=== PATIENT | female | born 1955 | race Caucasian/White ===

== ENCOUNTER → 2018-05-14 12:03 | Outpatient (CLI) | payer OTHER, SELFPAY ==
--- NOTE | 2018-05-14 12:17 | XR_ITS ---
XR chest 2V HISTORY: ITS.REASON: HTN ORDERING PHYSICIAN: Jacki Conde DPM PATIENT AGE: 62 years COMPARISON: None available FINDINGS: The cardiomediastinal silhouette and pulmonary vascularity are within normal limits. The lungs are clear without infiltrates, suspicious nodules, or pleural effusions. There are small calcified left hilar nodes and calcified granuloma left lower lobe. No acute bony abnormalities. IMPRESSION: Negative chest, no acute finding
[2018-05-14 12:20] LABS: Basophils % 0.7 % (0.1-2.0); Eosinophils # 0.1 K/mm3 (0.0-0.4); Hematocrit 45.3 % (37.0-47.0); Lymphocytes # 2.5 K/mm3 (0.7-4.5); Lymphocytes % 42.8 K/mm3 (10-50); Mean Corpuscular HGB Conc 33.2 g/dL (31.8-35.4); Mean Corpuscular Hemoglobin 30.2 pg (27.0-31.2); Mean Corpuscular Volume 90.8 fl (81-99); Monocytes # 0.3 K/mm3 (0.1-1.0); Monocytes % 4.8 % (1.7-9.3); Neutrophils % 50.7 % (37.0-80.0); Platelet Count 307 K/mm3 (142-424); Red Blood Count 4.99 M/mm3 (4.20-5.40); Red Cell Distribution Width 13.5 % (11.5-17.5); White Blood Count 5.9 K/mm3 (4.8-10.8)
[2018-05-14 12:30] LABS: INR 1.02 (0.9-1.1); Prothrombin Time 10.5 seconds (9.4-11.8)
[2018-05-14 15:07] LABS: Alanine Aminotransferase 20 U/L (12-78); Albumin Level 4.1 gm/dL (3.4-5.0); Albumin/Globulin Ratio 1.4 (1.1-1.8); Alkaline Phosphatase 89 U/L (46-116); Anion Gap 14.2 mEq/L (5-15); Aspartate Amino Transferase 12 U/L (15-37); Bilirubin,Total 0.5 mg/dL (0.2-1.0); Blood Urea Nitrogen 12 mg/dL (7-18); Calcium 9.6 mg/dL (8.5-10.1); Carbon Dioxide 28 mmol/L (21.0-32.0); Chloride 105 mmol/L (98-107); Creatinine,Serum 0.75 mg/dL (0.55-1.02); Estimated Glomerular Filt Rate 78 ml/min (>60); GFR (African American) 94 ML/MIN (>60); Glucose 100 mg/dL (74-106); Potassium 4.2 mmoL/L (3.5-5.1); Sodium 143 mmol/L (136-145); Total Protein,Serum 7.1 gm/dL (6.4-8.2)
== END ==
PROVIDERS: Visit Provider Podiatrist
DX: Z01.818 Encounter for other preprocedural examination (principal); S92.351A Displaced fracture of fifth metatarsal bone, right foot, initial encounter for closed fracture
CPT/HCPCS: 36415; 71046; 80053; 85025; 85610; 93005

== ENCOUNTER → 2018-05-29 12:55 | Outpatient (CLI) | payer OTHER, SELFPAY ==
--- NOTE | 2018-05-29 13:50 | XR_ITS ---
XR foot wt bearing RT 3V HISTORY: Follow-up surgery ITS.REASON: postop views ORDERING PHYSICIAN: Jacki Conde DPM PATIENT AGE: 62 years COMPARISON: 05/15/2018 FINDINGS: Status post ORIF fifth metatarsal fracture with a lateral bone plate with 5 screws. The proximal screw projects beyond the medial aspect of the cortex by nearly 3 mm. An additional screw is present not within the bone plate in the mid shaft. There is good alignment with no significant displacement. Fracture line is still visible. IMPRESSION: Good alignment status post ORIF fifth metatarsal fracture
== END ==
PROVIDERS: Visit Provider Podiatrist
DX: Z98.890 Other specified postprocedural states (principal)
CPT/HCPCS: 73630

== ENCOUNTER → 2018-06-12 08:07 | Outpatient (CLI) | payer OTHER, SELFPAY ==
--- NOTE | 2018-06-12 08:11 | XR_ITS ---
XR foot wt bearing RT 3V HISTORY: Follow-up surgery/fracture ITS.REASON: post-op ORDERING PHYSICIAN: Jacki Conde DPM PATIENT AGE: 62 years COMPARISON: None 05/29/2018 FINDINGS: No change bone plate overlying the fifth metatarsal stabilizing the mid to distal shaft fracture which is in good alignment. IMPRESSION: No change status post ORIF fifth metatarsal fracture
== END ==
PROVIDERS: PCP Family Medicine; Visit Provider Podiatrist
DX: S92.351D Displaced fracture of fifth metatarsal bone, right foot, subsequent encounter for fracture with routine healing (principal); Z98.890 Other specified postprocedural states
CPT/HCPCS: 73630

== ENCOUNTER → 2018-06-26 08:17 | Outpatient (CLI) | payer OTHER, SELFPAY ==
--- NOTE | 2018-06-26 08:19 | XR_ITS ---
XR foot wt bearing RT 3V HISTORY: Follow-up surgery ITS.REASON: Post-op Views ORDERING PHYSICIAN: Jacki Conde DPM PATIENT AGE: 62 years COMPARISON: 06/12/2018 FINDINGS: Bone plate remains reservoir on the mid and distal shaft of the fifth metatarsal stabilizing comminuted midshaft fracture with good alignment of fracture fragments. Fracture line is still visible. IMPRESSION: No change in alignment status post ORIF fifth metatarsal fracture
== END ==
PROVIDERS: PCP Family Medicine; Visit Provider Podiatrist
DX: S92.351D Displaced fracture of fifth metatarsal bone, right foot, subsequent encounter for fracture with routine healing (principal); Z98.890 Other specified postprocedural states
CPT/HCPCS: 73630

== ENCOUNTER → 2018-07-11 09:11 | Outpatient (CLI) | payer OTHER, SELFPAY ==
--- NOTE | 2018-07-11 09:13 | XR_ITS ---
XR foot wt bearing RT 3V Ordering Physician: Jacki Conde DPM Patient Age: 62 years: Female HISTORY: ITS.REASON: Post-op views Surgery 8 weeks ago pain swelling right foot TECHNIQUE: Right foot 3 view weightbearing lateral oblique. COMPARISON :[id number] right foot. Also 05/14/2018 original right foot and a 06/12/2018 right foot FINDINGS Bone plate remains and applied along the lateral aspect towards more dorsal aspect, of the fifth metatarsal.. This stabilizes a oblique mild comminuted fracture midportion fifth metatarsal.A single screw also transverses the oblique portion of fracture There is stable good position of the fracture and fixation elements. Diffuse disuse osteopenia throughout the foot. There is some subtle lucency about the screws. This appears similar to previous studies . There is some early periosteal reaction seen at the medial aspect of the fifth metatarsal. Soft tissue swelling throughout the foot appears slightly more evident today than June 26. I see no erosive nor destructive changes . Toes appear intact. Mild degenerative changes first MTP joint. 9-10 mm Plantar calcaneal spur again noted. Along with minimal spurring at insertion of Achilles tendon. IMPRESSION: ORIF fifth metatarsal fracture. Stable appearance of fracture and fixation elements. Diffuse demineralization. . Soft tissue swelling at the forefoot-appears similar if not slightly more pronounced than June 26 study
== END ==
PROVIDERS: PCP Family Medicine; Visit Provider Podiatrist
DX: S92.351D Displaced fracture of fifth metatarsal bone, right foot, subsequent encounter for fracture with routine healing (principal); Z98.890 Other specified postprocedural states
CPT/HCPCS: 73630

== ENCOUNTER → 2018-07-31 10:29 | Outpatient (CLI) | payer OTHER, SELFPAY ==
--- NOTE | 2018-07-31 10:30 | XR_ITS ---
XR foot wt bearing RT 3V HISTORY: Follow-up surgery/fracture ITS.REASON: postop views ORDERING PHYSICIAN: Jacki Conde DPM PATIENT AGE: 62 years COMPARISON: 07/11/2018 FINDINGS: Bone plate remains in place overlying the fifth metatarsal with good alignment. There remains generalized osteopenia. Fracture line is still present visible. Cortical lucencies are noted involving the metatarsals probably related to diffuse demineralization. IMPRESSION: Overall no change status post ORIF fifth metatarsal fracture with good alignment and diffuse osteopenia
== END ==
PROVIDERS: PCP Family Medicine; Visit Provider Podiatrist
DX: Z98.890 Other specified postprocedural states (principal)
CPT/HCPCS: 73630

== ENCOUNTER 2018-08-22 14:00 | Outpatient (RCR) | payer OTHER, SELFPAY ==
--- NOTE | 2018-07-24 09:50 | HMH.PTOPEV ---
PT Outpatient Evaluation Rehab PT Outpatient Evaluation Start: 07/24/18 09:37 Freq: Status: Active Protocol: Document 07/24/18 09:37 ROSALINDA (Rec: 07/24/18 09:50 CHRISMARIYA [id number]) Electronically Signed By Phani Garrison, PT 07/24/18 09:37 Outpatient Therapy Subjective History Subjective History Patient is a 62 year old female presenting to outpatient PT with reports of R foot/ankle pain S/P ORIF 5th metatarsal fracture as a result of a fall off of a ladder at home. Initial injury occurred 05/11/18. Surgery performed 05/16/18 per patient report. Pt added that approximately 2 weeks after surgery, diagnostics indicated a hairline fracture of the R 5th metatarsal. Pt reports MD instructed to only walk on R heel at this time. No other comorbidities to report. Chief Complaint Pain Stiff Swelling Symptom Type Sharp Symptoms Relieved By Rest/Positioning Ice Prescription Meds Symptoms Aggravated By Standing Physical Activity Walking Prior Functional Limitations None Current Functional Limitations Housework Standing Squatting Recreation Activity Walking Stairs Balance Symptom Description Intermittent Level of pain today (0-10) 0 Pain scale - at its best (0-10) 0 Pain scale - at its worst (0-10) 2 Ankle/Foot Eval Gait Observation General Gait Pattern Observation Antalgic Gait Decrease Weight Bear (R) Assistive Device Ambulation Assistive Device Axillary Crutches Palpation Tenderness right Ankle/Foot Palpation Findings Tenderness Ankle/Foot Palpation Overall Comment surgical incision, 1-5 metatarsal heads ROM left Ankle/Foot ROM Reason Not Measured Within Functional Limits Great Toe ROM Reason Not Measured Within Functional Limits right Ankle/Foot Dorsiflexion w/Knee Extended -2 Active Range Motion (degrees) Ankle/Foot Dorsiflexion w/Knee Extended 2 Passive Range (degrees)
== END 2018-08-22 14:05 | disposition home or self-care (01) ==
LOC: PT 14:00
PROVIDERS: Visit Provider Podiatrist
DX: Z98.890 Other specified postprocedural states (principal); S92.351D Displaced fracture of fifth metatarsal bone, right foot, subsequent encounter for fracture with routine healing
CPT/HCPCS: 97014; 97016; 97110; 97112; 97140; 97163; 97760; G0283

== ENCOUNTER → 2018-09-10 10:29 | Outpatient (CLI) | payer OTHER, SELFPAY ==
--- NOTE | 2018-09-10 10:30 | XR_ITS ---
XR foot wt bearing RT 3V HISTORY: Follow-up ORIF ITS.REASON: fracture follow-up ORDERING PHYSICIAN: Jacki Conde DPM PATIENT AGE: 62 years COMPARISON: 07/31/2018 FINDINGS: Good alignment status post ORIF fifth metatarsal fracture with bone plate in place. The diffuse osteopenia has shown some improvement. The fracture line at the fifth metatarsal is somewhat less apparent. IMPRESSION: Good alignment status post ORIF fifth metatarsal fracture
== END ==
PROVIDERS: PCP Family Medicine; Visit Provider Podiatrist
DX: S92.351D Displaced fracture of fifth metatarsal bone, right foot, subsequent encounter for fracture with routine healing (principal); Z98.890 Other specified postprocedural states
CPT/HCPCS: 73630

== ENCOUNTER → 2019-03-04 13:46 | Outpatient (CLI) | payer MEDICARE, BC, SELFPAY ==
--- NOTE | 2019-03-04 13:55 | US_ITS ---
US extremity RT limited CLINICAL INDICATION: ITS.REASON: KNOT RT LOWER LEG ORDERING PHYSICIAN: Femi Medeiros MD PATIENT AGE: 63 years Comparison: None FINDINGS: Ultrasound is performed of the area of interest in the region of reported swelling in the right lower leg medially. No sonographic abnormalities are detected. IMPRESSION: Unremarkable targeted ultrasound of the right lower extremity. MRI may be of further value if there is indeed a palpable abnormality.
== END ==
PROVIDERS: PCP Family Medicine; Visit Provider Family Medicine
DX: M79.89 Other specified soft tissue disorders (principal)
CPT/HCPCS: 76882

== ENCOUNTER → 2019-04-23 13:37 | Outpatient (CLI) | payer MEDICARE, BC, SELFPAY ==
--- NOTE | 2019-04-23 13:43 | XR_ITS ---
XR foot wt bearing RT 3V HISTORY: Follow-up ORIF/fracture ITS.REASON: Post-op ORDERING PHYSICIAN: Jacki Conde DPM PATIENT AGE: 63 years COMPARISON: 09/10/2018 FINDINGS: Lateral bone plate is once again noted involving the mid and distal aspect of the fifth metatarsal with good alignment. No evidence of orthopedic complication. There are mild osteoarthritic changes of the first metatarsal phalangeal joint with hypertrophic change of the distal aspect of the first metatarsal. IMPRESSION: No change status post ORIF fifth metatarsal with good alignment
== END ==
PROVIDERS: PCP Family Medicine; Visit Provider Podiatrist
DX: Z98.890 Other specified postprocedural states (principal)
CPT/HCPCS: 73630

== ENCOUNTER → 2019-06-29 10:10 | Outpatient (CLI) | payer MEDICARE, BC, SELFPAY ==
[2019-06-29 14:18] LABS: Blood Urea Nitrogen 16 mg/dL (7-18); Creatinine,Serum 0.65 mg/dL (0.55-1.02); Estimated Glomerular Filt Rate 91 ml/min (>60); GFR (African American) 111 ML/MIN (>60)
== END ==
PROVIDERS: Visit Provider Podiatrist
DX: Z01.818 Encounter for other preprocedural examination (principal); R22.41 Localized swelling, mass and lump, right lower limb
CPT/HCPCS: 36415; 82565; 84520

== ENCOUNTER → 2019-07-01 09:18 | Outpatient (CLI) | payer MEDICARE, BC, SELFPAY ==
--- NOTE | 2019-07-01 09:20 | MR_ITS ---
PROCEDURE: MR LOWER LEG RT WO/W CON CLINICAL INDICATION: pain, lump or mass Mass on the front and right side of her leg Localized swelling mass and lump right lower limb medially COMPARISON: EXTRL US extremity RT limited from 03/04/2019 TECHNIQUE: Routine multiplanar multi echo sequences are performed without and with gadolinium enhancement. FINDINGS: There are no markers placed at the area of concern. No masses. No bony abnormalities. No abnormal fluid collections. There is mild prominence of the subcutaneous adipose tissue along the anterior medial aspect of the leg which could possibly account for the area of palpable concern. Lipoma is considered although an encapsulated lipoma is not demonstrated. No abnormal enhancement. There is a small mild amount of pretibial edema noted in the mid to lower leg IMPRESSION: No suspicious mass or fluid collection evident. There is asymmetrical prominence of the subcutaneous fat along the anterior medial aspect of the leg which may indicate lipomatosis involvement. Dictated by: Goldy Pickens MD 07/03/2019 09:18 Electronically signed by Goldy Pickens MD in [place] 07/05/2019 10:40
== END ==
PROVIDERS: PCP Family Medicine; Visit Provider Podiatrist
DX: R22.41 Localized swelling, mass and lump, right lower limb (principal)
CPT/HCPCS: 73720; A9576

== ENCOUNTER → 2019-08-07 12:19 | Outpatient (CLI) | payer MEDICARE, BC, SELFPAY ==
--- NOTE | 2019-08-07 12:24 | XR_ITS ---
PROCEDURE: XR KNEE RT 4V CLINICAL INDICATION: right knee pain COMPARISON: No exams were available for comparison FINDINGS: There are mild osteoarthritic changes of the medial compartment and patellofemoral joint. There are small osteophytes at the tibial spine. There is mild lateral subluxation of the tibia by 5 mm. Small suprapatellar effusion suspected. Other findings:None. IMPRESSION: Mild osteoarthritis of the right knee Dictated by: Goldy Pickens MD 08/07/2019 15:18 Electronically signed by Goldy Pickens MD in [place] 08/07/2019 15:18
== END ==
PROVIDERS: PCP Family Medicine; Visit Provider Orthopaedic Surgery
DX: M25.561 Pain in right knee (principal)
CPT/HCPCS: 73564

== ENCOUNTER → 2020-06-18 12:08 | Outpatient (CLI) | payer MEDICARE, BC, SELFPAY ==
[2020-06-18 13:10] LABS: Basophils % 0.5 % (0.1-2.0); Eosinophils # 0.1 K/mm3 (0.0-0.4); Hematocrit 45.6 % (37.0-47.0); Hemoglobin 15.2 g/dL (12.2-16.2); Mean Corpuscular HGB Conc 33.3 g/dL (31.8-35.4); Mean Corpuscular Hemoglobin 30.5 pg (27.0-31.2); Mean Corpuscular Volume 91.5 fl (81-99); Mean Platelet Volume 6.9 fl (7.4-10.4); Monocytes # 0.4 K/mm3 (0.1-1.0); Monocytes % 4.5 % (1.7-9.3); Neutrophils # 5.5 K/mm3 (1.8-7.8); Platelet Count 329 K/mm3 (142-424); Red Blood Count 4.99 M/mm3 (4.20-5.40); Red Cell Distribution Width 12.5 % (11.5-17.5); White Blood Count 7.9 K/mm3 (4.8-10.8)
[2020-06-18 14:27] LABS: Alanine Aminotransferase 8 U/L (12-78); Albumin Level 4.4 g/dl (3.5-5.0); Alkaline Phosphatase 110 U/L (38-126); Anion Gap 11.5 mEq/L (5-15); Aspartate Amino Transferase 20 U/L (14-36); Bilirubin,Direct 0.1 mg/dl (0.0-0.4); Bilirubin,Indirect 0.5 mg/dL (0.0-0.9); Bilirubin,Total 0.6 mg/dl (0.2-1.3); Bilirubin,Unconjugated 0.5 mg/dL (0.0-1.1); Blood Urea Nitrogen 14 mg/dl (7-17); Calcium 9.9 mg/dl (8.4-10.2); Carbon Dioxide 32 mmol/L (22.0-30.0); Chloride 104 mmol/L (98-107); Estimated Glomerular Filt Rate 72 ml/min (>60); GFR (African American) 87 ML/MIN (>60); Glucose 94 mg/dl (74-100); Potassium 4.5 mmoL/L (3.5-5.1); Sodium 143 mmol/L (136-145); Total Protein,Serum 7.6 g/dl (6.3-8.2)
[2020-06-18 14:35] LABS: Troponin I < 0.01 ng/ml (0.00-0.034)
== END ==
PROVIDERS: Visit Provider Family Medicine
DX: R07.9 Chest pain, unspecified (principal); I10 Essential (primary) hypertension; R10.13 Epigastric pain; Z82.49 Family history of ischemic heart disease and other diseases of the circulatory system
CPT/HCPCS: 36415; 80048; 80076; 84484; 85025

== ENCOUNTER → 2020-09-15 16:18 | Outpatient (CLI) | payer MEDICARE, BC, SELFPAY ==
--- NOTE | 2020-09-19 11:20 | PC.NURSE ---
pt notified of negative covid swab
== END ==
PROVIDERS: PCP Family Medicine; Visit Provider Nurse Practitioner Family
DX: Z03.818 Encounter for observation for suspected exposure to other biological agents ruled out (principal)
CPT/HCPCS: U0003; U0004

== ENCOUNTER 2020-09-17 09:01 | Emergency (ER) | payer MEDICARE, BC, SELFPAY ==
[2020-09-17 09:17] VITALS: BP 139/70; PULSE 72; RESP 15; TEMP 36.8; O2SAT 98; BMI 28.6
--- NOTE | 2020-09-17 09:28 | HMH.EDGENADL ---
ED Disposition Clinical Impression: COVID-19 virus infection Disposition: Home, Self-Care Condition on Discharge: Good Instructions: DI for COVID-19 (Suspected or Confirmed ), COVID-19 Antibody Test, COVID-19 Viral Test, COVID-19: Testing and Tracing Additional Instructions: Continue [id number] symptomatic medications for cough and fever and sore throat. Your nasal swab is still pending. Your IgM Covid antibody was positive which indicates that you do have active Covid infection. You will be contacted regarding antibody infusion therapy. He should return to the emergency department if you are experiencing shortness of breath or severe weakness, persistent vomiting and unable to tolerate oral liquids. Referrals: Femi Medeiros MD [Primary Care Provider] - - Critical Care Critical Care Time: No Attestation: On 09/17/20, the high probability of a clinically significant, sudden or life threatening deterioration of the following system(s) required my full and direct attention, intervention and personal management. The time I documented below is in addition to time spent performing reported procedures but includes the following listed in this critical care notation. Medical Decision Making - Ritesh Inquiry Pt receiving controlled substance: No Vital Signs: 09/17/20 09:17 09/17/20 10:03 09/17/20 10:30 Temperature 98.2 F Temperature Source Oral Pulse Rate [Right Brachial] 72 70 79 Respiratory Rate 15 Blood Pressure [Right Arm] 139/70 130/68 142/75 H Blood Pressure Mean [Right Arm] 93 88 97 Blood Pressure Source [Right Arm] Automatic Cuff Blood Pressure Position [Right Arm] Sitting 02 Sat by Pulse Oximetry 98 96 96 Oxygen Delivery Method Room Air Room Air Room Air - Lab Data Lab Results 09/17/20 09:45: WBC 6.2, RBC 5.43 H, Hgb 17.2 H, Hct 50.2 H, MCV 92.5, MCH 31.7 H, MCHC 34.2, RDW 13.8, Plt Count 314, MPV 7.7, Neut % (Auto) 58.4, Lymph % (Auto) 33.6, Candler % (Auto) 6.2, Eos % (Auto) 1.0, Baso % (Auto) 0.9, Neut # (Auto) 3.6, Lymph # (Auto) 2.1, Candler # (Auto) 0.4, Eos # (Auto) 0.1, Baso # (Auto) 0.1 09/17/20 09:45: Sodium 142, Potassium 4.5, Chloride 104, Carbon Dioxide 31 H, Anion Gap 11.5, BUN 15, Creatinine 0.90, Estimated Creat Clear 68, Estimated GFR 63, Est GFR ( Amer) 76, Glucose 107 H, Calcium 10.1, Total Bilirubin 0.6, AST 25, ALT 12, Alkaline Phosphatase 75, Total Protein 8.3 H, Albumin 4.7, Globulin 3.6 H, Albumin/Globulin Ratio 1.3 09/17/20 09:45: Influenza Type A Ag Negative, Influenza Type B Ag Negative, SARS-CoV-2 IgG Ab (Rapid) Negative, SARS-CoV-2 IgM Ab (Rapid) Positive A Result diagrams: 09/17/20 09:45 09/17/20 09:45 - Radiology Data #1 Image(s): Chest Image Reviewed: Yes I reviewed the patient's radiology image, Yes I have reviewed radiologist's interpretation PROCEDURE: XR CHEST PORTABLE CLINICAL HISTORY: cough COMPARISON: CR CXR2V XR chest 2V from 05/14/2018 CR XR RIBS RT MIN 3V W CXR1V from 05/15/2019 FINDINGS: The cardiomediastinal silhouette and pulmonary vascularity are within normal limits. The lungs are clear without infiltrates, suspicious nodules, or pleural effusions. No acute bony abnormalities. IMPRESSION: No acute findings. Dictated by: Goldy Pickens MD 09/17/2020 10:14 Goldy Pickens MD in 09/17/2020 10:14 Medical Decision Narrative: I contacted the laboratory. The patient's swab was not obtained until after 4 PM on Monday and therefore was not sent out to the reference lab until yesterday because there is only 1 pickup per day. She expects the results to be back before 2 PM today. Patient and notified. General Adult HPI - General Chief complaint: Upper Respiratory Infection Stated complaint: Achy, sore throat headache Time Seen by Provider: 09/17/20 09:28 Mode of Arrival: Ambulatory Limitations: No Limitations Description of Symptoms (Recalled from ER Triage Doc. by RN): Pt reports h
--- NOTE | 2020-09-17 09:55 | XR_ITS ---
PROCEDURE: XR CHEST PORTABLE CLINICAL HISTORY: cough COMPARISON: CR CXR2V XR chest 2V from 05/14/2018 CR XR RIBS RT MIN 3V W CXR1V from 05/15/2019 FINDINGS: The cardiomediastinal silhouette and pulmonary vascularity are within normal limits. The lungs are clear without infiltrates, suspicious nodules, or pleural effusions. No acute bony abnormalities. IMPRESSION: No acute findings. Dictated by: Goldy Pickens MD 09/17/2020 10:14 Goldy Pickens MD in [place] 09/17/2020 10:14
[2020-09-17 10:03] VITALS: BP 130/68; PULSE 70; O2SAT 96
[2020-09-17 10:12] LABS: Basophils # 0.1 K/mm3 (0-0.2); Basophils % 0.9 % (0.1-2.0); Eosinophils # 0.1 K/mm3 (0.0-0.4); Hematocrit 50.2 % (37.0-47.0); Hemoglobin 17.2 g/dL (12.2-16.2); Lymphocytes # 2.1 K/mm3 (0.7-4.5); Lymphocytes % 33.6 % (10-50); Mean Corpuscular HGB Conc 34.2 g/dL (31.8-35.4); Mean Corpuscular Hemoglobin 31.7 pg (27.0-31.2); Mean Corpuscular Volume 92.5 fl (81-99); Mean Platelet Volume 7.7 fl (7.4-10.4); Monocytes # 0.4 K/mm3 (0.1-1.0); Monocytes % 6.2 % (1.7-9.3); Neutrophils # 3.6 K/mm3 (1.8-7.8); Neutrophils % 58.4 % (37.0-80.0); Platelet Count 314 K/mm3 (142-424); Red Blood Count 5.43 M/mm3 (4.20-5.40); Red Cell Distribution Width 13.8 % (11.5-17.5); White Blood Count 6.2 K/mm3 (4.8-10.8)
[2020-09-17 10:13] LABS: Chloride 104 mmol/L (98-107); Potassium 4.5 mmoL/L (3.5-5.1); Sodium 142 mmol/L (136-145)
[2020-09-17 10:15] LABS: Alanine Aminotransferase 12 U/L (12-78); Aspartate Amino Transferase 25 U/L (14-36); Blood Urea Nitrogen 15 mg/dl (7-17); Creatinine Clearance Estimated 68 mL/min (50-200); Estimated Glomerular Filt Rate 63 ml/min (>60); GFR (African American) 76 ML/MIN (>60)
[2020-09-17 10:16] LABS: Albumin Level 4.7 g/dl (3.5-5.0); Albumin/Globulin Ratio 1.3 (1.1-1.8); Alkaline Phosphatase 75 U/L (38-126); Anion Gap 11.5 mEq/L (5-15); Bilirubin,Total 0.6 mg/dl (0.2-1.3); Calcium 10.1 mg/dl (8.4-10.2); Carbon Dioxide 31 mmol/L (22.0-30.0); Globulin 3.6 g/dL (1.3-3.2); Glucose 107 mg/dl (74-100); Total Protein,Serum 8.3 g/dl (6.3-8.2)
[2020-09-17 10:30] VITALS: BP 142/75; PULSE 79; O2SAT 96
[2020-09-17 10:40] LABS: Coronavirus 19 IgG Antibody Negative (Negative)
--- NOTE | 2020-09-17 10:40 | PC.NURSE ---
igm results called to Tosin Villasenor, Licensed [employer] at this time
--- NOTE | 2020-09-17 10:40 | PC.NURSE ---
Dr Raudel mark.
[2020-09-17 10:41] LABS: Coronavirus 19 IgM Antibody Positive (Negative)
--- NOTE | 2020-09-17 10:42 | PC.NURSE ---
Dr Starks returned call
[2020-09-17 12:01] VITALS: BP 132/89; PULSE 62; RESP 17; TEMP 37.2; O2SAT 96
--- NOTE | 2020-09-19 11:21 | PC.NURSE ---
per ER (Kaylyn) called pt back at this time, left a voicemail for pt. MD Patiño wants me to speak to pt about getting reswabbed for covid 19, states he will write an outpt order for pt to have another swab. waiting decontamination technician back from pt.
--- NOTE | 2020-09-19 12:16 | PC.NURSE ---
Spoke with pt r/t MD Patiño recommended pt have another covid-19 swab. Pt states she come back for another swab. MD Patiño states he will write an outpt order for pt.
--- NOTE | 2020-09-19 16:33 | PC.NURSE ---
notified pt that covid swab performed today is positive.
== END 2020-09-17 12:02 | disposition home or self-care (01) ==
PROVIDERS: Emergency Provider Emergency Medicine; PCP Family Medicine
DX: U07.1 COVID-19 (principal); I10 Essential (primary) hypertension; Z79.899 Other long term (current) drug therapy; Z88.0 Allergy status to penicillin; Z88.5 Allergy status to narcotic agent
CPT/HCPCS: 71045; 80053; 85025; 86328; 87275; 87276; 99283

== ENCOUNTER → 2020-09-19 12:45 | Outpatient (CLI) | payer MEDICARE, BC, SELFPAY | PROVIDERS: PCP Family Medicine; Visit Provider Emergency Medicine | DX: Z20.828 Contact with and (suspected) exposure to other viral communicable diseases (principal); U07.1 COVID-19; R51.9 Headache, unspecified; R11.10 Vomiting, unspecified | CPT/HCPCS: U0003 ==

== ENCOUNTER 2020-09-22 07:57 | Outpatient (CLI) | payer MEDICARE, BC, SELFPAY ==
[2020-09-22] VITALS (10 sets, daily range): BP systolic 94–142; BP diastolic 43–94; PULSE 62–89; RESP 16–21; TEMP 36.6–36.8; O2SAT 94–98; BMI 28.6
--- NOTE | 2020-09-22 09:46 | PC.NURSE ---
Infusion complete. Patient shows no signs or symptoms of distress or reactions.
[2020-09-22 11:51] LABS: Strep Scrn Group A (Rapid) Negative (Negative)
== END 2020-09-22 10:46 | disposition home or self-care (01) ==
PROVIDERS: PCP Family Medicine; Visit Provider Family Medicine
DX: U07.1 COVID-19 (principal)
CPT/HCPCS: 87430; 96365

== ENCOUNTER → 2021-06-16 14:04 | Outpatient (CLI) | payer MEDICARE, BC, SELFPAY ==
--- NOTE | 2021-06-16 14:05 | CT_ITS ---
PROCEDURE: CT SINUS WO CON CLINICAL HISTORY: sinus problems Sinus congestion COMPARISON: No exams were available for comparison TECHNIQUE: Axial images obtained with sagittal and coronal reformats. All CT scans at the facility use one or more dose reduction, viz: automated exposure control, ma/kV adjustment per patient size (including targeted exams where dose is matched to indication, i.e. head), or iterative reconstruction technique. FINDINGS: The frontal, ethmoid, maxillary, and sphenoid sinuses have an unremarkable appearance. No mucosal thickening or sinus air-fluid level evident. No mastoid effusion. There is mild rightward nasal septal deviation inferiorly with a septal spur projecting toward the right causing canal narrowing. The ostiomeatal units are patent. Orbits have an unremarkable appearance as do TMJs. IMPRESSION: Mild rightward nasal septal deviation otherwise negative CT sinuses Dictated by: Goldy Pickens MD 06/17/2021 09:19 Goldy Pickens MD in [place] 06/17/2021 09:19
== END ==
PROVIDERS: PCP Family Medicine; Visit Provider Otolaryngology
DX: J30.9 Allergic rhinitis, unspecified (principal); J34.3 Hypertrophy of nasal turbinates
CPT/HCPCS: 70486

== ENCOUNTER 2021-10-17 12:40 | Emergency (ER) | payer MEDICARE, BC, SELFPAY ==
[2021-10-17 14:14] VITALS: BP 142/80; PULSE 66; RESP 18; TEMP 36.9; O2SAT 100; BMI 29.2
--- NOTE | 2021-10-17 15:07 | HMH.EDUTC ---
[facility] Clinical Impression: Sinusitis Qualifiers: Sinusitis location: unspecified location Chronicity: unspecified Qualified Code(s): J32.9 - Chronic sinusitis, unspecified Disposition: Home, Self-Care Condition on Discharge: Good Instructions: Sinusitis, DI for Sinusitis, DI for COVID-19 (Suspected or Confirmed ) Additional Instructions: *Monitor Temp, Over the counter Motrin or Tylenol as directed/as needed Tylenol every 4 hours and Motrin every 6 hours (as long as your family doctor has told you that you can take it) for fever or pain. and straight to ER if unable to lower temp less than 101.0 after medication given *Warm salt water gargles may help to soothe the throat *Throat Lozenges *Warm fluids like tea with honey may help to soothe the throat *Sleep elevated *Humidifier/Vaporizer Continue taking azithromycin as prescribed Your throat swab was sent for culture. Those results are typically sent to your primary care. Be sure to follow up in 2-3 days with your family doctor/primary care physician if no improvement so they can review those result and treat if necessary. If you don?t have a primary care doctor, I recommend you get one but in the mean time, you will have to return to a walk in clinic Follow up IMMEDIATELY for new or worsening symptoms or no Noticeable improvement over the next 48-72 hours. 911 for difficulty breathing or swallowing You were tested for today for COVID19 your test result should be back in the next 24-48 hours, you may check your results on the [facility] Portal if you have trouble logging on you may call [place] support for assistance You was given a handout with instructions for Self Quarantine and Self isolation for while you wait on test results and what to do if they are positive If you are positive the Health Dept will be contacting you also Make sure to take your Vitamins Vit. C Vit D and Zinc if you can take them Prescriptions: methylPREDNISolone [Medrol 4mg tab] 4 mg PO DIRECTED #21 tab Transmission Status: Pending to [id number] Referrals: Femi Medeiros MD [Primary Care Provider] - As needed Time of Disposition: 15:46 Medical Decision Making - Ritesh Inquiry Pt receiving controlled substance: No Ritesh was queried for this patient: No Vital Signs: 10/17/21 14:14 10/17/21 15:38 Temperature 98.4 F 98.4 F Temperature Source Oral Pulse Rate 66 Pulse Rate [Left Radial] 66 Respiratory Rate 18 18 Blood Pressure 142/80 H Blood Pressure [Right Arm] 142/80 H Blood Pressure Mean [Right Arm] 100 Blood Pressure Source [Right Arm] Automatic Cuff Blood Pressure Position [Right Arm] Sitting 02 Sat by Pulse Oximetry 100 Oxygen Delivery Method Room Air - Lab Data Lab results reviewed: Yes: I reviewed the patient's lab results. Lab Results 10/17/21 15:03: Group A Strep Rapid Negative Orders (Tests/Meds): ORDERS Category Date Time Status Covid-19 Nasal PCR ([facility]) Routine Lab 10/17/21 14:22 Ordered Strep Screen Confirmation Stat Micro 10/17/21 15:03 Received Medical Decision Narrative: Patient states that she has taken medrol dose pack in the past without complication or reactions [facility] [place] - General Stated complaint: possible sinus infection Time Seen by Provider: 10/17/21 15:07 Mode of Arrival: Ambulatory Source of Information: Patient Limitations: No Limitations Description of Symptoms (Recalled from Triage Doc. by RN): c/o sinus drainage and coughing HEENT Symptoms (Recalled from RN notes): Yes Resp Symptoms (Recalled from RN notes): No Skin Symptoms (Recalled from RN notes): No MS Symptoms (Recalled from RN notes): No Functional Status (Recalled from RN notes): na - History of Present Illness Provider Complaint: Patient states that she is currently being treated for sinus infection and taking azithromycin State that she doesnt feel like it is getting any better States that pressure is actually getting worse so she ca
[2021-10-17 15:31] LABS: Strep Scrn Group A (Rapid) Negative (Negative)
[2021-10-17 15:38] VITALS: BP 142/80; PULSE 66; RESP 18; TEMP 36.9
== END 2021-10-17 15:53 | disposition home or self-care (01) ==
PROVIDERS: Emergency Provider Nurse Practitioner; PCP Family Medicine
DX: J32.9 Chronic sinusitis, unspecified (principal); I10 Essential (primary) hypertension; Z20.822 Contact with and (suspected) exposure to COVID-19; Z88.0 Allergy status to penicillin; Z88.1 Allergy status to other antibiotic agents
CPT/HCPCS: G0463; 87430; 99203; C9803; U0003; U0005

== ENCOUNTER 2021-12-23 13:40 | Emergency (ER) | payer MEDICARE, BC, SELFPAY ==
[2021-12-23 13:41] VITALS: BP 185/69; PULSE 62; RESP 18; TEMP 36.7; O2SAT 98; BMI 29.9
[2021-12-23 16:05] LABS: UTC Influenza A Antigen Negative (Negative); UTC Influenza B Antigen Negative (Negative)
--- NOTE | 2021-12-23 16:39 | HMH.EDUTC ---
[facility] [place] Disposition Clinical Impression: Sinusitis Qualifiers: Sinusitis location: unspecified location Chronicity: acute Recurrence: non-recurrent Qualified Code(s): J01.90 - Acute sinusitis, unspecified Disposition: Home, Self-Care Condition on Discharge: Good Instructions: DI for Sinusitis Additional Instructions: Drink plenty of fluids. Take tylenol or ibuprofen for pain or fever. Take the medications as directed. Follow up with your regular doctor. GO TO THE ER FOR ANY WORSENING SYMPTOMS Prescriptions: Benzonatate [Benzonatate 100mg cap] 100 mg PO TIDP PRN #30 cap PRN Reason: Cough Transmission Status: Received by [id number] methylPREDNISolone [Medrol] 4 mg PO DIRECTED 6 Days #21 packet Transmission Status: Received by [id number] Cefdinir [Omnicef 300mg Capsule] 300 mg PO BID #20 cap Transmission Status: Received by [id number] Referrals: Femi Medeiros MD [Primary Care Provider] - Forms: Work/School Release Time of Disposition: 16:51 Medical Decision Making - Medical Records Medical records reviewed: No: I reviewed the patient's medical records. - Ritesh Inquiry Pt receiving controlled substance: No Vital Signs: 12/23/21 13:41 12/23/21 16:56 Temperature 98.1 F 98.1 F Temperature Source Oral Pulse Rate 62 Pulse Rate [Right Radial] 62 Respiratory Rate 18 18 Blood Pressure 185/69 H Blood Pressure [Right Arm] 185/69 H Blood Pressure Mean [Right Arm] 107 Blood Pressure Source [Right Arm] Automatic Cuff Blood Pressure Position [Right Arm] Sitting 02 Sat by Pulse Oximetry 98 Oxygen Delivery Method Room Air - Lab Data Lab results reviewed: Yes: I reviewed the patient's lab results. Lab Results 12/23/21 15:48: Influenza Type A Ag Negative, Influenza Type B Ag Negative [facility] HPI - General Stated complaint: bodyaches, chills, SILVA Time Seen by Provider: 12/23/21 16:39 Mode of Arrival: Ambulatory Source of Information: Patient Limitations: No Limitations Description of Symptoms (Recalled from Triage Doc. by RN): Pt stated that she is having chills, runny nose, body aches, and a SILVA. HEENT Symptoms (Recalled from RN notes): Yes Resp Symptoms (Recalled from RN notes): Yes Skin Symptoms (Recalled from RN notes): No MS Symptoms (Recalled from RN notes): No Functional Status (Recalled from RN notes): n/a - History of Present Illness Provider Complaint: She states that for the past 2 days she has had sinus congestion and runny nose. - Related Data Home Medications Medication Instructions Recorded Confirmed adalimumab 40 mg/0.4 mL 40 mg SUB-Q WEEKLY 05/14/18 12/21/21 subcutaneous pen kit amlodipine 2.5 mg tablet 2.5 mg PO DAILY 30 Days 05/14/18 12/21/21 fluticasone propionate 50 g INTRANASAL 06/08/21 12/21/21 mcg/actuation nasal spray,suspension montelukast 10 mg tablet 10 mg PO tab 06/08/21 12/21/21 Previous Rx's Medication Instructions Recorded fexofenadine-pseudoephedrine ER 1 tab PO DAILY #90 tab 06/08/21 180 mg-240 mg tablet,ext.release 24 hr peg 3350-electrolytes 236 240 ml PO Q10M #4000 ml 11/03/21 gram-22.74 gram-6.74 gram-5.86 gram solution Benzonatate [Benzonatate 100mg 100 mg PO TIDP PRN #30 cap 12/23/21 cap] Cefdinir [Omnicef 300mg Capsule] 300 mg PO BID #20 cap 12/23/21 methylPREDNISolone [Medrol] 4 mg PO DIRECTED 6 Days #21 12/23/21 packet Allergies Allergy/AdvReac Type Severity Reaction Status Date / Time acitretin [From Soriatane] Allergy Verified 12/21/21 08:10 azithromycin [From Zithromax] Allergy Verified 12/21/21 08:10 carisoprodol [From Soma] Allergy Verified 12/21/21 08:10 erythromycin base Allergy Verified 12/21/21 08:10 hydrocodone Allergy Verified 12/21/21 08:10 Penicillins Allergy Verified 12/21/21 08:10 tetracycline Allergy Verified 12/21/21 08:10 - Worker's Comp Is this a Worker's Comp case?: No H History - Hepatit
[2021-12-23 16:56] VITALS: BP 185/69; PULSE 62; RESP 18; TEMP 36.7; O2SAT 98
== END 2021-12-23 16:57 | disposition home or self-care (01) ==
PROVIDERS: Emergency Provider Nurse Practitioner Family; PCP Family Medicine
DX: J01.90 Acute sinusitis, unspecified (principal); I10 Essential (primary) hypertension
CPT/HCPCS: 87804; 99212; G0463

== ENCOUNTER → 2022-01-01 08:26 | Outpatient (CLI) | payer MEDICARE, BC, SELFPAY | PROVIDERS: Visit Provider Surgery | DX: Z01.812 Encounter for preprocedural laboratory examination (principal); Z11.52 Encounter for screening for COVID-19; Z12.11 Encounter for screening for malignant neoplasm of colon | CPT/HCPCS: C9803; U0003; U0005 ==

== ENCOUNTER 2022-01-04 06:26 | Day surgery (SDC) | payer MEDICARE, BC, SELFPAY ==
[2021-12-30 12:45] VITALS: BMI 29.2
[2022-01-04 06:48] VITALS: BP 141/52; PULSE 73; RESP 18; TEMP 36.6; O2SAT 96
--- NOTE | 2022-01-04 07:09 | P.PN_ITS ---
[facility] Anesthesia Checklist - Patient Identification Patient Identification: Arm Band - Structural Data Admitted From: Home Planned Operative Procedure/s: colonoscopy Consent for Planned Operative Procedure(s) Verified: Yes Verified Documents: Surgical Consent, History and Physical - NPO Status Verified Time NPO: 00:00 - Additional verifications Anesthesia Reactions: No Hx Blood Transfusions: No Blood Transfusion Reaction: No - Airway Assessment C-Spine Mobility Assessed: Yes (mp2) TMJ Mobility Assessed: Yes Dentition: Good Dentition - Neurological Assessment Level of Consciousness: Awake, Alert - Anesthesia Plan Anesthesia Risk discussed: Yes Anesthesia Plan: Verified ASA Class: II Anesthesia Type: MAC [facility] History I have reviewed the patient's past medical history: Yes Medical History: Reports:: Hypertension Denies:: Cancer, Diabetes Mellitus Type 1, Diabetes Mellitus Type 2, Internal Pacemaker, MRSA, Seizures *Have you ever received a pneumonia vaccine?: No *Have you received a flu vaccine this season?: Yes Other Medical History: Reports: Arthritis, Other. Denies: Blood Transfusion Reaction Anesthesia experience/problems:: nac Laterality Cases: Left: Myringotomy (Ear Tubes), Bilateral: Carpal Tunnel Release Other Surgeries: Yes: Cholecystectomy, Tubal Ligation, Other. No: Pacemaker Amputation: No Fractures: Yes (RIGHT FOOT) - *Social History Last grade of school completed: High school graduate Smoking Status: Never smoker Alcohol Intake: never Alcohol Intake Frequency:: other Substance Use Type: denies use *Occupational Status:: retired Housing: house Household Members: spouse *Travel in the last 8 weeks: None Family Hx:: Hypertension, Hyperlipidemia
[2022-01-04 07:26] VITALS: O2SAT 96
--- NOTE | 2022-01-04 07:52 | P.PCN_ITS ---
- Procedure: Date: 01/04/22 Patient Date of :: 1955 Procedure Performed:: Colonoscopy with polypectomy Indications:: Screening Performing Provider:: Pedro Singh MD Referring Provider:: . Sedation:: Monitored anesthesia care Procedure:: After informed consent was obtained the patient was taken to the endoscopy suite. Sedation ensued after the patient was transferred to the left lateral decubitus position. Pulse, blood pressure, and oxygen saturation were monitored throughout the procedure. Digital rectal exam revealed no significant ab normality. The colonoscope was placed in position. The entire colon was evaluated. The colonoscope was carefully removed and the patient was transferred to recovery in stable condition. Please see findings and specimens below for detail. Findings:: Bowel preparation fair to moderate Hemorrhoidal tag/cushions Fairly significant spasticity/lack of relaxation Periappendiceal polyp Specimens:: Periappendiceal polyp (cold snare) Recommendations:: Timing of repeat colonoscopy is pending pathology will likely be between 2-3 years secondary to slightly-limiting preparation, spasticity, and lack of relaxation. Complications:: No immediate Estimated blood obtained (mL): 1
[2022-01-04 07:54] VITALS: BP 96/46; PULSE 89; RESP 16; TEMP 36.3; O2SAT 95
[2022-01-04 08:04] VITALS: BP 102/44; PULSE 89; RESP 18; O2SAT 97
[2022-01-04 08:14] VITALS: BP 122/54; PULSE 74; RESP 18; O2SAT 97
[2022-01-04 08:24] VITALS: BP 111/62; PULSE 59; RESP 18; O2SAT 95
== END 2022-01-04 08:24 | disposition home or self-care (01) ==
LOC: OUTP 06:27
PROVIDERS: PCP Family Medicine; Visit Provider Surgery
PROC: 0DJD8ZZ Inspection of Lower Intestinal Tract, Via Natural or Artificial Opening Endoscopic (ICD-10-PCS; principal; 2022-01-04 07:30)
DX: Z12.11 Encounter for screening for malignant neoplasm of colon (principal); K58.9 Irritable bowel syndrome, unspecified; K64.9 Unspecified hemorrhoids; K63.5 Polyp of colon; I10 Essential (primary) hypertension; M19.90 Unspecified osteoarthritis, unspecified site; Z82.49 Family history of ischemic heart disease and other diseases of the circulatory system; Z83.438 Family history of other disorder of lipoprotein metabolism and other lipidemia; Z88.0 Allergy status to penicillin; Z79.899 Other long term (current) drug therapy; Z86.16 Personal history of COVID-19
CPT/HCPCS: 45385; 88305

== ENCOUNTER 2022-01-09 08:59 | Emergency (ER) | payer MEDICARE, BC, SELFPAY ==
[2022-01-09 09:05] VITALS: BP 139/86; PULSE 86; RESP 18; TEMP 36.8; O2SAT 98; BMI 29.2
--- NOTE | 2022-01-09 09:16 | HMH.EDUTC ---
[facility] [place] Clinical Impression: Acute bronchitis Qualifiers: Bronchitis organism: unspecified organism Qualified Code(s): J20.9 - Acute bronchitis, unspecified Disposition: Home, Self-Care Condition on Discharge: Good Instructions: DI for Acute Bronchitis Additional Instructions: Start antibiotic today. Be sure to complete entire prescription even if feeling better Tylenol and ibuprofen as needed for pain or fever Humidifier/vaporizer/hot steamy shower Follow-up with primary care tomorrow. Follow-up immediately in the ER of the [facility] for new or worsening symptoms or no noticeable improvement over the next 48-72 hours. Stop smoking Inhaler every 4-6 hours as needed. Should help open airways improved cough, wheezing, shortness of breath Prescriptions: Albuterol Sulfate [Albuterol Sulfate Hfa] 6.7 gm IH Q4-6H PRN 14 Days #1 each PRN Reason: Wheezing Transmission Status: Pending to [facility] Azithromycin [Zithromax 250mg tab] 250 mg PO DIRECTED #6 tab Transmission Status: Pending to [facility] Referrals: Femi Medeiros MD [Primary Care Provider] - Time of Disposition: 09:28 Medical Decision Making - Ritesh Inquiry Pt receiving controlled substance: No Vital Signs: 01/09/22 09:05 Temperature 98.3 F Temperature Source Oral Pulse Rate [Left Brachial] 86 Respiratory Rate 18 Blood Pressure [Left Arm] 139/86 Blood Pressure Mean [Left Arm] 103 Blood Pressure Source [Left Arm] Automatic Cuff Blood Pressure Position [Left Arm] Sitting 02 Sat by Pulse Oximetry 98 Oxygen Delivery Method Room Air [facility] [place] HPI - General Chief complaint: Urgent [facility] Stated complaint: cough, congestion, h/a Time Seen by Provider: 01/09/22 09:16 Mode of Arrival: Ambulatory Source of Information: Patient Limitations: No Limitations Description of Symptoms (Recalled from Triage Doc. by RN): PATIENT C/O SINUS CONGESTION AND DRY COUGH X 1 WEEK HEENT Symptoms (Recalled from RN notes): Yes Resp Symptoms (Recalled from RN notes): Yes Skin Symptoms (Recalled from RN notes): No MS Symptoms (Recalled from RN notes): No Functional Status (Recalled from RN notes): WNL - History of Present Illness Provider Complaint: 66 yr old female presents for coughing up thick yellow sputum at times and nothing at times, pt states she was placed on antibiotics and steroids. pt states she does not think she has improved - Related Data Home Medications Medication Instructions Recorded Confirmed adalimumab 40 mg/0.4 mL 40 mg SUB-Q WEEKLY 05/14/18 12/30/21 subcutaneous pen kit amlodipine 2.5 mg tablet 2.5 mg PO DAILY 30 Days 05/14/18 12/30/21 Cefdinir [Omnicef 300mg Capsule] 300 mg PO BID 12/30/21 12/30/21 Previous Rx's Medication Instructions Recorded Benzonatate [Benzonatate 100mg 100 mg PO TIDP PRN #30 cap 12/23/21 cap] Albuterol Sulfate [Albuterol 6.7 gm IH Q4-6H PRN 14 Days #1 each 01/09/22 Sulfate Hfa] Azithromycin [Zithromax 250mg 250 mg PO DIRECTED #6 tab 01/09/22 tab] Allergies Allergy/AdvReac Type Severity Reaction Status Date / Time Penicillins Allergy Verified 12/30/21 12:42 - Worker's Comp Is this a Worker's Comp case?: No [facility] History - Hepatitis A Screen Drug use history?: No High risk sexual behaviors?: No History of sexually transmitted infection?: No Currently employed?: No Childcare worker?: No Do you have indoor plumbing?: Yes Do you have electricity?: Yes Attestation statement:: This patient has been screened for Hepatitis A risk factors. I have reviewed the patient's past medical history: Yes Medical History: Reports:: Hypertension Denies:: Cancer, Diabetes Mellitus Type 1, Diabetes Mellitus Type 2, Internal Pacemaker, MRSA, Seizures Other Medical History: Reports: Arthritis, Other. Denies: Blood Transfusion Reaction Laterality Cases: Left: Myringotomy (Ear Tubes), Bilateral: Carpal Tunnel Release Other Surgeries: Yes: No
[2022-01-09 09:26] VITALS: BP 139/86; PULSE 86; RESP 18; TEMP 36.8; O2SAT 98
== END 2022-01-09 09:35 | disposition home or self-care (01) ==
PROVIDERS: Emergency Provider Nurse Practitioner Family; PCP Family Medicine
DX: J02.9 Acute pharyngitis, unspecified (principal); I10 Essential (primary) hypertension; Z79.51 Long term (current) use of inhaled steroids; Z79.52 Long term (current) use of systemic steroids; Z79.899 Other long term (current) drug therapy; Z88.0 Allergy status to penicillin; Z82.49 Family history of ischemic heart disease and other diseases of the circulatory system; Z83.438 Family history of other disorder of lipoprotein metabolism and other lipidemia
CPT/HCPCS: 96372; 99213; G0463

== ENCOUNTER 2022-01-11 09:01 | Emergency (ER) | payer MEDICARE, BC, SELFPAY ==
--- NOTE | 2022-01-11 09:27 | XR_ITS ---
FINAL REPORT CLINICAL HISTORY: cough, congestion COMPARISON: 09/17/2020 FINDINGS: Two views of the chest were obtained. The heart size and pulmonary vascularity are within normal limits. The mediastinum is normal. No acute pulmonary abnormality is identified. There is no pneumothorax. The bony thorax is intact. IMPRESSION: No active cardiopulmonary disease. Reviewed, Interpreted and Dictated by Paolo Dey III, MD Transcribed by Viviane Jose Authenticated by Paolo Dey III, MD on 01/11/2022 11:25:30 AM [facility]
[2022-01-11 09:29] VITALS: BP 141/67; PULSE 77; RESP 16; TEMP 36.6; O2SAT 95; BMI 29.2
--- NOTE | 2022-01-11 09:36 | HMH.EDUTC ---
[facility] Disposition Clinical Impression: Acute bronchitis Qualifiers: Bronchitis organism: unspecified organism Qualified Code(s): J20.9 - Acute bronchitis, unspecified Disposition: Home, Self-Care Condition on Discharge: Good Instructions: Acute Bronchitis, DI for Acute Bronchitis Additional Instructions: Drink plenty of fluids. Take tylenol or ibuprofen for pain or fever. Take the medications as directed. Follow up with your regular doctor. GO TO THE ER FOR ANY WORSENING SYMPTOMS Don't start the oral steroids until tomorrow, since you had the shot here today. The cough medication (promethazine dm) will make you drowsy, so don't drive or operate heavy machinery after taking it. Finish the z-pack that you are on. Start the doxycycline today. Don't start the oral steroids (prednisone) until tomorrow since you had the steroid shot here today. Prescriptions: Promethazine/Dextromethorphan [Promethazine-Dm Syrup] 5 ml PO Q6HP PRN #240 ml PRN Reason: Cough Transmission Status: Received by [facility] Benzonatate [Benzonatate 100mg cap] 100 mg PO TIDP PRN #30 cap PRN Reason: Cough Transmission Status: Received by [facility] predniSONE [Deltasone 10mg tablet] 10 mg PO DAILY 9 Days #21 tab Transmission Status: Received by [facility] Doxycycline Monohydrate [Doxycycline [place] 100mg Tab] 100 mg PO Q12 10 Days #20 tab Transmission Status: Received by [facility] Referrals: Femi Medeiros MD [Primary Care Provider] - Forms: Work/School Release Time of Disposition: 10:20 Medical Decision Making - Medical Records Medical records reviewed: No: I reviewed the patient's medical records. - Ritesh Inquiry Pt receiving controlled substance: No Vital Signs: 01/11/22 09:29 01/11/22 10:27 Temperature 97.9 F 97.9 F Temperature Source Oral Oral Pulse Rate 77 Pulse Rate [Left] 77 Respiratory Rate 16 16 Blood Pressure 141/67 H Blood Pressure [Right Arm] 141/67 H Blood Pressure Mean [Right Arm] 91 02 Sat by Pulse Oximetry 95 - Lab Data Lab results reviewed: Yes: I reviewed the patient's lab results. Lab Results 01/11/22 10:16: Chlamy pneumoniae PCR Not detected, Adenovirus (PCR) Not detected, B. pertussis DNA (PCR) Not detected, Coronavirus OC43 (PCR) Not detected, Coronavirus HKU1 (PCR) Not detected, Coronavirus 229E (PCR) Not detected, SARS-CoV-2 (PCR) Not detected, Coronavirus NL63 (PCR) Not detected, Human Metapneumovir PCR Detected A, Influenza A (H1) PCR Not detected, Influ A (H1N1/09) PCR Not detected, Influenza A (H3) PCR Not detected, Influenza Type A (PCR) Not detected, Influenza Type B (PCR) Not detected, M. pneumoniae (PCR) Not detected, Parainfluenza 1 (PCR) Not detected, Parainfluenza 2 (PCR) Not detected, Parainfluenza 3 (PCR) Not detected, Parainfluenza 4 (PCR) Not detected, RSV (PCR) Not detected, Entero/Rhino (PCR) Not detected Orders (Tests/Meds): ED MEDICATIONS Discontinued Medications Generic Name Dose Route Start Last Admin Trade Name Juniorq PRN Reason Stop Dose Admin Ceftriaxone Sodium 1 gm 01/11/22 09:59 01/11/22 10:26 Ceftriaxone 1gm Vial IM 01/11/22 10:00 1 gm ONCE ONE Administration Lidocaine HCl 0 ml 01/11/22 09:59 01/11/22 10:26 Lidocaine 1% 5ml Pf Vial IM 01/11/22 10:00 2 ml ONCE ONE Administration Methylprednisolone Sodium Succinate 125 mg 01/11/22 09:59 01/11/22 10:26 Methylprednisolone Sod Succ 125mg Vial IM 01/11/22 10:00 125 mg ONCE ONE Administration [facility] HPI - General Stated complaint: cough, congestion, soa Time Seen by Provider: 01/11/22 09:30 Mode of Arrival: Ambulatory Source of Information: Patient Limitations: No Limitations Description of Symptoms (Recalled from Triage Doc. by RN): pt believes she has bronchitis. pt was seen here on 01/09 and is not feeling any better. HEENT Symptoms (Recalled from RN notes): Yes Resp Symptoms (Recalled from RN not
[2022-01-11 10:23] LABS: Adenovirus,PCR Not Detected (NotDetected); Bordetella Pertussis Not Detected (NotDetected); Chlamydophila Pneumoniae, PCR Not Detected (NotDetected); Coronavirus 19, PCR Not Detected (NotDetected); Coronavirus 229E Not Detected (NotDetected); Coronavirus NL63 Not Detected (NotDetected); Coronavirus OC43 Not Detected (NotDetected); Coronovirus HKU1,PCR Not Detected (NotDetected); Influenza A, PCR Not Detected (NotDetected); Influenza AH1, 2009 Not Detected (NotDetected); Influenza AH1, PCR Not Detected (NotDetected); Influenza AH3,PCR Not Detected (NotDetected); Influenza B, PCR Not Detected (NotDetected); Mycoplasma Pneumoniae, PCR Not Detected (NotDetected); Parainfluenza 1, PCR Not Detected (NotDetected); Parainfluenza 2, PCR Not Detected (NotDetected); Parainfluenza 3, PCR Not Detected (NotDetected); Parainfluenza 4, PCR Not Detected (NotDetected); Respiratory Syncytial Virus Not Detected (NotDetected); Rhinovirus/Enterovirus Not Detected (NotDetected)
[2022-01-11 10:27] VITALS: BP 141/67; PULSE 77; RESP 16; TEMP 36.6
[2022-01-11 12:49] LABS: Human Metapneumovirus Detected (NotDetected)
== END 2022-01-11 10:31 | disposition home or self-care (01) ==
PROVIDERS: Emergency Provider Nurse Practitioner Family; PCP Family Medicine
DX: J20.9 Acute bronchitis, unspecified (principal); B34.8 Other viral infections of unspecified site; I10 Essential (primary) hypertension
CPT/HCPCS: 71046; 87581; 87632; 87798; 96372; 99213; C9803; G0463; J0696; U0003; U0005

== ENCOUNTER 2022-01-30 16:03 | Emergency (ER) | payer MEDICARE, BC, SELFPAY ==
[2022-01-30 16:22] VITALS: BP 139/69; PULSE 85; RESP 18; TEMP 36.9; O2SAT 97; BMI 29.1
--- NOTE | 2022-01-30 16:33 | HMH.EDUTC ---
[facility] [place] Clinical Impression: Acute bronchitis Qualifiers: Bronchitis organism: unspecified organism Qualified Code(s): J20.9 - Acute bronchitis, unspecified Sinusitis Qualifiers: Sinusitis location: unspecified location Chronicity: unspecified Qualified Code(s): J32.9 - Chronic sinusitis, unspecified Disposition: Home, Self-Care Condition on Discharge: Good Instructions: Sinusitis, DI for Acute Bronchitis, DI for Chronic Bronchitis Additional Instructions: ? Start antibiotic today. Be sure to complete entire prescription even if feeling better ? Monitor temp. Tylenol every 4 hours as needed and / or ibuprofen every 6 hours as needed ( As long as your primary care physician has told you that it ok to take both. For fever/aches/pains ER if no less than 101 despite Tylenol or Motrin ? Humidifier/vaporizer or hot steamy shower ? Inhaler every 4-6 hours as needed like we discussed. If unsure how to use it, ask pharmacist to demonstrate how. Should help open airways and improve cough, wheezing, and shortness of breath Make sure to eat some yogurt or take probiotics to help prevent GI upset *Tessalon Perles will not cause drowsiness but use at bedtime to help stop cough so that you may get some rest. Follow up IMMEDIATELY for new or worsening of symptoms OR no noticeable improvement over the next 48-72 hours. 911 immediately for any life threatening symptoms such as chest pain or difficulty breathing Prescriptions: Benzonatate [Benzonatate 100mg cap] 100 mg PO Q8HP PRN #15 cap PRN Reason: Cough Transmission Status: [facility] to [facility] levoFLOXacin [Levaquin 500mg tab] 500 mg PO DAILY #7 tab Transmission Status: Pending to [facility] Referrals: Femi Medeiros MD [Primary Care Provider] - As needed Time of Disposition: 17:12 Medical Decision Making - Ritesh Inquiry Pt receiving controlled substance: No Ritesh was queried for this patient: No Vital Signs: 01/30/22 16:22 Temperature 98.4 F Temperature Source Oral Pulse Rate [Left] 85 Respiratory Rate 18 Blood Pressure [Right Arm] 139/69 Blood Pressure Mean [Right Arm] 92 02 Sat by Pulse Oximetry 97 Orders (Tests/Meds): ED MEDICATIONS Discontinued Medications Generic Name Dose Route Start Last Admin Trade Name Freq PRN Reason Stop Dose Admin Methylprednisolone Sodium Succinate 125 mg 01/30/22 16:44 Methylprednisolone Sod Succ 125mg Vial IM 01/30/22 16:45 ONCE ONE [facility] [place]PI - General Stated complaint: COUGH,CONGESTION Time Seen by Provider: 01/30/22 16:33 Mode of Arrival: Ambulatory Source of Information: Patient Limitations: No Limitations Description of Symptoms (Recalled from Triage Doc. by RN): pt c/o recurring bronchitis HEENT Symptoms (Recalled from RN notes): No Resp Symptoms (Recalled from RN notes): Yes Skin Symptoms (Recalled from RN notes): No MS Symptoms (Recalled from RN notes): No Functional Status (Recalled from RN notes): wnl - History of Present Illness Provider Complaint: Patient state that she gets bronchitis about this time every year and this year has been the worst State that she has been on several medications over the last couple of months to try to clear it up States that she is still having cough, sinus congestion and pressure and nagging cough States that today she felt worse so she came in - Related Data Home Medications Medication Instructions Recorded Confirmed adalimumab 40 mg/0.4 mL 40 mg SUB-Q WEEKLY 05/14/18 01/19/22 subcutaneous pen kit amlodipine 2.5 mg tablet 2.5 mg PO DAILY 30 Days 05/14/18 01/19/22 Cefdinir [Omnicef 300mg Capsule] 300 mg PO BID 12/30/21 01/19/22 Previous Rx's Medication Instructions Recorded Benzonatate [Benzonatate 100mg 100 mg PO TIDP PRN #30 cap 12/23/21 cap] Albuterol Sulfate [Albuterol 6.7 gm IH Q4-6H PRN 14 Days #1 each 01/09/22 Sulfate Hfa] Azithromycin [Zithromax 250mg 250 mg PO DIRECTED #6 tab 0
[2022-01-30 17:15] VITALS: BP 139/69; PULSE 85; RESP 18; TEMP 36.9
== END 2022-01-30 17:19 | disposition home or self-care (01) ==
PROVIDERS: Emergency Provider Nurse Practitioner; PCP Family Medicine
DX: J02.9 Acute pharyngitis, unspecified (principal); J32.9 Chronic sinusitis, unspecified; I10 Essential (primary) hypertension; M19.90 Unspecified osteoarthritis, unspecified site; Z79.51 Long term (current) use of inhaled steroids; Z88.0 Allergy status to penicillin; Z82.49 Family history of ischemic heart disease and other diseases of the circulatory system; Z83.438 Family history of other disorder of lipoprotein metabolism and other lipidemia
CPT/HCPCS: 99213; G0463

== ENCOUNTER 2022-02-01 13:27 | Emergency (ER) | payer MEDICARE, BC, SELFPAY ==
[2022-02-01 13:28] VITALS: BP 166/74; PULSE 98; RESP 18; TEMP 37.2; O2SAT 98; BMI 29.1
--- NOTE | 2022-02-01 13:31 | PC.NURSE ---
Alana Grijalva RN at [facility]; ED at [facility]
--- NOTE | 2022-02-01 13:35 | XR_ITS ---
FINAL REPORT CLINICAL HISTORY: Acute cough COMPARISON: January 11, 2022 FINDINGS: TWO-VIEW CHEST Two views of the chest were obtained. The heart size and pulmonary vascularity are within normal limits. The mediastinum is normal. There is mild bronchial wall thickening consistent with bronchitis. There is no pneumothorax. The bony thorax is intact. IMPRESSION: Findings consistent with bronchitis. Reviewed, Interpreted and Dictated by Paolo Dey III, MD Transcribed by Ria Bahena Authenticated by Paolo Dey III, MD on 02/01/2022 02:23:34 PM [facility]
--- NOTE | 2022-02-01 13:37 | HMH.EDGENADL ---
ED Disposition Clinical Impression: Bronchitis Disposition: Home, Self-Care Condition on Discharge: Good Instructions: DI for Acute Bronchitis Additional Instructions: You have been evaluated for cough and chest congestion. Please complete Levaquin as prescribed by your primary doctor. Start taking daily allergy medication, cetirizine. Use cough medication as needed. Monitor your symptoms closely. Follow-up with your primary care doctor in 1 to 2 days for symptom recheck. Return to the emergency department for any new or worsening symptoms, chest pain, difficulty breathing, any other concerns. Prescriptions: Cetirizine HCl 10 mg PO DAILY #30 tab Transmission Status: Pending to [facility] guaiFENesin [Guaifenesin] 200 mg PO Q6 PRN #200 ml PRN Reason: Cough Transmission Status: Pending to [facility] Referrals: Femi Medeiros MD [Primary Care Provider] - Time of Disposition: 14:53 - Critical Care Critical Care Time: No Attestation: On 02/01/22, the high probability of a clinically significant, sudden or life threatening deterioration of the following system(s) required my full and direct attention, intervention and personal management. The time I documented below is in addition to time spent performing reported procedures but includes the following listed in this critical care notation. Medical Decision Making - Medical Records Medical records reviewed: Yes: I reviewed the patient's medical records. - Ritesh Inquiry Pt receiving controlled substance: No Vital Signs: 02/01/22 13:28 Temperature 98.9 F Temperature Source Oral Pulse Rate [Right] 98 H Respiratory Rate 18 Blood Pressure [Right Arm] 166/74 H Blood Pressure Mean [Right Arm] 104 Blood Pressure Source [Right Arm] Automatic Cuff Blood Pressure Position [Right Arm] Sitting 02 Sat by Pulse Oximetry 98 Oxygen Delivery Method Room Air Orders (Tests/Meds): ED MEDICATIONS Discontinued Medications Generic Name Dose Route Start Last Admin Trade Name Freq PRN Reason Stop Dose Admin Guaifenesin 200 mg 02/01/22 13:35 02/01/22 13:38 Guaifenesin 200mg/10ml Syrup Udc PO 02/01/22 13:36 200 mg ONCE ONE Administration Medical Decision Narrative: In summary this is a 66-year-old female presenting to the emergency department with cough and chest congestion. Patient clinically stable on arrival. Vital signs within normal limits. No hypoxia or elevated respiratory rate. Will obtain 2 view chest x-ray. Patient given oral cough medication. Chest x-ray consistent with bronchitis. No focal pneumonia. On reassessment, patient's cough has significantly improved after guaifenesin. Patient is on medication for treatment of atypical pneumonia, Levaquin. Recommended she complete the course. Recommended she start taking daily allergy medication, cetirizine. Follow-up closely with PCP. Given return precautions. Stable for discharge. General Adult HPI - General Stated complaint: chest congestion Time Seen by Provider: 02/01/22 13:37 Mode of Arrival: Ambulatory Source of Information: Patient Limitations: No Limitations Description of Symptoms (Recalled from ER Triage Doc. by RN): PT advises she is being treated for bronchitis and has had an antibiotic shot and been taking oral antibiotics and steroids but she is not feeling any better and coughed a lot last night - History of Present Illness HPI narrative: 66-year-old female presenting to the emergency department with cough and chest congestion. She has had symptoms for 3 weeks. Severe last night. She was coughing frequently. Feels like her chest is congested. No shortness of breath or pain with inspiration. She has been taking all medications as prescribed. She is taking Tessalon for cough. Oral steroids and Levaquin. This is her third round of antibiotics. Started with azithromycin, then doxycycline, now Levaquin. She does not take daily aller
[2022-02-01 14:01] VITALS: BP 129/47; PULSE 90; O2SAT 95
[2022-02-01 14:30] VITALS: BP 134/57; PULSE 97; O2SAT 93
[2022-02-01 15:00] VITALS: BP 142/52; PULSE 91; O2SAT 95
[2022-02-01 15:30] VITALS: BP 144/51; PULSE 97; O2SAT 94
[2022-02-01 16:20] VITALS: BP 121/61; PULSE 83; RESP 20; TEMP 37.2; O2SAT 94
== END 2022-02-01 16:22 | disposition home or self-care (01) ==
PROVIDERS: Emergency Provider Emergency Medicine; PCP Family Medicine
DX: J18.9 Pneumonia, unspecified organism (principal); R53.81 Other malaise; J20.9 Acute bronchitis, unspecified; I10 Essential (primary) hypertension; M19.90 Unspecified osteoarthritis, unspecified site; R09.89 Other specified symptoms and signs involving the circulatory and respiratory systems; J34.89 Other specified disorders of nose and nasal sinuses; Z79.51 Long term (current) use of inhaled steroids; Z79.52 Long term (current) use of systemic steroids; Z79.899 Other long term (current) drug therapy; Z82.49 Family history of ischemic heart disease and other diseases of the circulatory system; Z83.438 Family history of other disorder of lipoprotein metabolism and other lipidemia
CPT/HCPCS: 71046; 99283

== ENCOUNTER 2022-05-15 17:17 | Emergency (ER) | payer MEDICARE, BC, SELFPAY ==
--- NOTE | 2022-05-15 17:20 | XR_ITS ---
PROCEDURE INFORMATION: Exam: XR Right Knee Exam date and time: 05/15/22 05:33 PM Age: 66 years old Clinical indication: Injury or trauma; Fall; Blunt trauma; Knee; Right TECHNIQUE: Imaging protocol: Radiologic exam of the Right knee. Views: 3 views. COMPARISON: CR XR KNEE RT 4V 08/07/19 12:30 PM FINDINGS: Bones/joints: Severe tricompartmental degenerative changes. Medial subluxation suggest ligamentous instability. Consider elective MRI. Soft tissues: Normal. IMPRESSION: Severe tricompartmental degenerative changes. Medial subluxation suggest ligamentous instability. Consider elective MRI.
[2022-05-15 18:05] VITALS: BP 134/76; PULSE 64; RESP 19; TEMP 36.5; O2SAT 99; BMI 28.7
--- NOTE | 2022-05-15 18:32 | HMH.EDUTC ---
[facility] [place] Clinical Impression: Knee pain Qualifiers: Chronicity: unspecified Laterality: right Qualified Code(s): M25.561 - Pain in right knee Disposition: Home, Self-Care Condition on Discharge: Good Instructions: How To Perform RICE (Rest, Ice, Compress, Elevate), How to Use a Knee Immobilizer Additional Instructions: *RICE, Rest the extremity, Ice 15-20 minutes 3-4 times daily, Compress- wear the issa wrap as discussed as much as possible to help reduce swelling and pain, Elevate the extremity when at rest *Knee immobilizer is for support and help control swelling, use it except in the shower. Be sure that is not to tight but not to loose either *Elevate when resting Crutches to help walk *Ibuprofen every 6-8 hours as needed for pain an inflammation. If need something more can take Tylenol in between doses of Ibuprofen to help if your doctor has said you can take them Immediately follow up with your family doctor for new or worsening of symptoms, or no noticeable improvement over the next 3-5 days Follow up with Orthopedics for further evaluation and treatment call tomorrow for appointment Referrals: Femi Medeiros MD [Primary Care Provider] - As needed Rigo Michelle MD [Staff Physician] - (Call office tomorrow for appointment) Time of Disposition: 18:45 Medical Decision Making - Ritesh Inquiry Pt receiving controlled substance: No Ritesh was queried for this patient: No Vital Signs: 05/15/22 18:05 Temperature 97.7 F Temperature Source Oral Pulse Rate [Right Brachial] 64 Respiratory Rate 19 Blood Pressure [Right Arm] 134/76 Blood Pressure Mean [Right Arm] 95 Blood Pressure Source [Right Arm] Automatic Cuff Blood Pressure Position [Right Arm] Sitting 02 Sat by Pulse Oximetry 99 Oxygen Delivery Method Room Air - Radiology Data #1 Image(s): Knee Image Reviewed: Yes I have reviewed radiologist's interpretation IMPRESSION: Severe tricompartmental degenerative changes. Medial subluxation suggest ligamentous instability. Consider elective MRI. Medical Decision Narrative: Patient state that she sees Orthopedics in [place] and will call in the morning for appointment for MRI as discussed in [facility] HPI - General Stated complaint: AO08/17 R knee inj Time Seen by Provider: 05/15/22 18:32 Mode of Arrival: Ambulatory Source of Information: Patient Limitations: No Limitations Description of Symptoms (Recalled from Triage Doc. by RN): PATIENT C/O LEFT KNEE PAIN. SHE STATES SHE TWISTED ON MONDAY WHEN SHE SLIPPED ON A FLOOR HEENT Symptoms (Recalled from RN notes): No Resp Symptoms (Recalled from RN notes): No Skin Symptoms (Recalled from RN notes): No MS Symptoms (Recalled from RN notes): Yes Functional Status (Recalled from RN notes): WNL - History of Present Illness Provider Complaint: Patient states that she walked into her shop on Mon and the floor was wet and she slipped and twisted her right knee States that she has arthritis in that knee and has been getting injections in it but feels like she pulled or tore something in the side of her knee States that when she walks she has pain on the inner side of her knee - Related Data Home Medications Medication Instructions Recorded Confirmed adalimumab 40 mg/0.4 mL 40 mg SUB-Q WEEKLY 05/14/18 01/19/22 subcutaneous pen kit amlodipine 2.5 mg tablet 2.5 mg PO DAILY 30 Days 05/14/18 01/19/22 Cefdinir [Omnicef 300mg Capsule] 300 mg PO BID 12/30/21 01/19/22 Previous Rx's Medication Instructions Recorded Benzonatate [Benzonatate 100mg 100 mg PO TIDP PRN #30 cap 12/23/21 cap] Albuterol Sulfate [Albuterol 6.7 gm IH Q4-6H PRN 14 Days #1 each 01/09/22 Sulfate Hfa] Azithromycin [Zithromax 250mg 250 mg PO DIRECTED #6 tab 01/09/22 tab] Benzonatate [Benzonatate 100mg 100 mg PO TIDP PRN #30 cap 01/11/22 cap] Doxycycline Monohydrate 100 mg PO Q12 10 Days #20 tab 01/11/22 [Doxycycline [place] 100mg Tab
[2022-05-15 18:53] VITALS: BP 134/76; PULSE 64; RESP 19; TEMP 36.5; O2SAT 99
== END 2022-05-15 19:01 | disposition home or self-care (01) ==
PROVIDERS: Emergency Provider Nurse Practitioner; PCP Family Medicine
DX: M25.561 Pain in right knee (principal); X50.1XXA Overexertion from prolonged static or awkward postures, initial encounter
CPT/HCPCS: 29505; 73562; 99212; G0463

== ENCOUNTER → 2023-06-13 12:30 | Outpatient (CLI) | payer MEDICARE, BC, SELFPAY ==
--- NOTE | 2023-06-13 12:34 | XR_ITS ---
FINAL REPORT CLINICAL HISTORY: Foot Pain FINDINGS: Left foot Three views were obtained. There is no acute fracture or dislocation. The joint spaces appear normal. No soft tissue abnormality is identified. There is a moderate plantar spur. IMPRESSION: No acute process. Reviewed, Interpreted and Dictated by Corwin Ellison MD Transcribed by Jennifer Joel Authenticated and [facility]
--- NOTE | 2023-06-13 12:34 | XR_ITS ---
FINAL REPORT CLINICAL HISTORY: Foot Pain FINDINGS: Right foot Three views were obtained. There is no acute fracture or dislocation. The joint spaces appear normal. No soft tissue abnormality is identified. Sideplate and screws are seen securing the 5th metatarsal. There is a moderate plantar spur. IMPRESSION: No acute process. Reviewed, Interpreted and Dictated by Corwin Ellison MD Transcribed by Jennifer Joel Authenticated and [facility]
== END ==
PROVIDERS: PCP Family Medicine; Visit Provider Nurse Practitioner Family
DX: M79.671 Pain in right foot (principal); M79.672 Pain in left foot
CPT/HCPCS: 73630

== ENCOUNTER 2023-09-09 08:36 | Emergency (ER) | payer MEDICARE, BC, SELFPAY ==
[2023-09-09 08:50] VITALS: BP 161/76; PULSE 103; RESP 21; TEMP 37.4; O2SAT 97; BMI 30.4
--- NOTE | 2023-09-09 08:58 | EXP.UTC ---
Discharge Plan Disposition Patient Disposition: Home, Self-Care Condition: Good Prescriptions Prescriptions: New azithromycin [Zithromax] 250 mg tablet 250 mg PO UD DOSE PK Qty: 6 0RF Rx Instructions: Take two (2) tablets today, then one (1) tablet days #2 thru #5 benzonatate [benzonatate] 100 mg capsule 100 mg PO TIDP PRN (Reason: Cough) Qty: 30 0RF methylprednisolone 4 mg Tablets,Dose Pack 4 mg PO DIRECTED Qty: 21 0RF No Action amlodipine 2.5 mg tablet 2.5 mg PO DAILY 30 Days fexofenadine 180 mg tablet 180 mg PO DAILY Patient Comments: TAKE 1 TABLET BY MOUTH ONCE DAILY meloxicam 7.5 mg tablet 7.5 mg PO DAILY Patient Comments: TAKE 1 TABLET BY MOUTH ONCE DAILY FOR B/L FOOT PAIN fluticasone propionate 50 mcg/actuation spray,suspension 2 spray INTRANASAL DAILY Patient Comments: USE 2 SPRAY(S) IN EACH NOSTRIL ONCE DAILY rosuvastatin 5 mg tablet 5 mg PO DAILY Patient Comments: TAKE 1 TABLET BY MOUTH ONCE DAILY Referrals Follow up/Referrals: Femi Medeiros MD [Primary Care Provider] - See instructions Activity Restrictions/Add. Instructions Additional Instructions/Restrictions: Drink plenty of fluids. Take tylenol or ibuprofen for pain or fever. Take the medications as directed. Follow up with your regular doctor. GO TO THE ER FOR ANY WORSENING SYMPTOMS Clinical Impressions Clinical Impression: Acute viral syndrome, Sinusitis Instructions Patient Instructions: Sinusitis, DI for Sinusitis Discharge ED Provider: Se Enriquez [facility] General Stated complaint: chills, body aches Time Seen by Provider: 09/09/23 08:58 History of Present Illness Provider Complaint: She states that for the past 1 day she has had low grade fever, chills, body aches and a productive cough. Related Data Home Medications Medication Instructions Recorded Confirmed amlodipine 2.5 mg tablet 2.5 mg PO DAILY Hypertension 30 05/14/18 09/09/23 days fexofenadine 180 mg tablet 180 mg PO DAILY 09/09/23 09/09/23 fluticasone propionate 50 2 spray intranasal DAILY 09/09/23 09/09/23 mcg/actuation nasal spray,suspension meloxicam 7.5 mg tablet 7.5 mg PO DAILY 09/09/23 09/09/23 rosuvastatin 5 mg tablet 5 mg PO DAILY 09/09/23 09/09/23 Previous Rx's Medication Instructions Recorded azithromycin 250 mg tablet 250 mg PO UD DOSE PK #6 tabs 09/09/23 (Zithromax) benzonatate 100 mg capsule 100 mg PO TIDP PRN Cough #30 caps 09/09/23 methylprednisolone 4 mg tablets in 4 mg PO DIRECTED #21 tabs 09/09/23 a dose pack Allergies Allergy/AdvReac Type Severity Reaction Status Date / Time Penicillins Allergy Verified 06/13/23 11:35 [facility] Disclaimer: The information contained in this section may have been updated after the patient was seen, as this information can be updated by other users. Medical History (Updated 09/09/23 @ 09:22 by Se Enriquez APRN) Foot pain Gallbladder & bile duct stone, acute cholecystitis and obstruction Surgical History (Updated 06/13/23 @ 14:50 by Kate Thomas APRN) S/P foot surgery, right Social History Smoking Status: Never smoker second hand exposure: No alcohol intake: never substance use type: denies use current occupational status: other Travel in the last 8 weeks: None household members: spouse housing: house caffeine: Yes ROS Obtained: Yes All systems reviewed & no additional complaints except as documented Constitutional Constitutional: Reports chills and Reports fever(s) Eyes Eyes: Denies eye discharge ENT Ears, Nose, Mouth, and Throat: Reports as per HPI Cardiovascular Cardiovascular: Denies chest pain Respiratory Respiratory: Denies chest congestion and Reports cough Gastrointestinal Gastrointestingal: Reports nausea; Denies abdominal pain, constipation, cramping, diarrhea or vomiting M
[2023-09-09 09:04] LABS: UTC Strep Screen (Rapid) Negative (Negative)
[2023-09-09 09:05] LABS: UTC Influenza A Antigen Negative (Negative); UTC Influenza B Antigen Negative (Negative)
[2023-09-09 09:25] VITALS: BP 161/76; PULSE 103; RESP 21; TEMP 37.4; O2SAT 97
== END 2023-09-09 09:28 | disposition home or self-care (01) ==
PROVIDERS: Emergency Provider Nurse Practitioner Family; PCP Family Medicine
DX: U07.1 COVID-19 (principal); J01.90 Acute sinusitis, unspecified; R05.9 Cough, unspecified; R50.9 Fever, unspecified; M79.18 Myalgia, other site
CPT/HCPCS: 87635; 87804; 87880; 99212; 99214; G0463

== ENCOUNTER 2025-06-08 11:56 | Outpatient (CLI) | payer MEDICARE, BC, SELFPAY ==
--- NOTE | 2025-06-08 11:57 | XR_ITS ---
PROCEDURE INFORMATION: Exam: XR Left Foot Exam date and time: 06/08/2025 11:52 AM Age: 69 years old Clinical indication: Injury or trauma; Other: Hit on wooden stool; Swelling (edema); Toes; Left middle toe and left fourth toe and left little toe; Additional info: Foot/toe pain TECHNIQUE: Imaging protocol: Radiologic exam of the left foot. Views: 3 or more views. Total images: 3 COMPARISON: CR XR FOOT WT BEARING LT 3V 06/13/2023 12:48 PM FINDINGS: Bones/joints: Oblique fracture of the proximal phalanx of the 4th toe. No evidence of acute dislocation. Degenerative changes of the interphalangeal joints. Degenerative changes of the metatarsophalangeal joints. Calcaneal spurs are present. Soft tissues: Normal. IMPRESSION: 1. Oblique fracture of the proximal phalanx of the 4th toe. 2. No evidence of acute dislocation. 3. Degenerative changes of the interphalangeal joints.
--- OUTSIDE RECORDS SUMMARY | 2025-06-08 11:59 | XMS_ITS | Clinical Summary ---
Author Organization [facility] Address [address] [place] [address] Care Team Providers Care Cable Armorer Operator Name Role Phone Femi Medeiros MD Primary Care Provider + Allergies Active Allergy Reactions Criticality Noted Date Comments Penicillins Hives Low 02/04/2010 Medications Upadacitinib ER (Rinvoq) 15 MG tablet sustained-release 24 hour Rinvoq 15 mg tablet,exten ded release Take 1 tablet every day by oral route. 2 Active amLODIPine (NORVASC) 2.5 MG tabletIndications :Essential hypertension Take 1 tablet by mouth Daily. 90 tablet 3 4 Active cetirizine (zyrTEC) 10 MG tabletIndications :Non-seasonal allergic rhinitis due to pollen Take 1 tablet by mouth Daily. 90 tablet 3 4 Active rosuvastatin (CRESTOR) 5 MG tabletIndications :Hypercholesterol emia Take 1 tablet by mouth Daily. 90 tablet 3 4 Active Active Problems Problem Noted Date Diagnosed Date Hypercholesterolemia 01/01/2024 Assessment & Plan (07/22/2024 8:55 AM EDT): Contolled, at goal. Reassess yearly. Continue statin therapy Assessment & Plan (01/01/2024 11:32 AM EDT): Lipid abnormalities are stable Plan: Continue same medication/s without change. Discussed medication dosage, use, side effects, and goals of treatment in detail. Counseled patient on lifestyle modifications to help control hyperlipidemia. Patient Treatment Goals: LDL goal is under 100 Followup in 6 months. Multiple thyroid nodules 06/27/2023 Overview (01/20/2025): ENT-Dr. Starks. Per patient ultrasounds have consistently shown no growth of nodules. NO further f/u needed. Essential hypertension 02/14/2022 Assessment & Plan (01/20/2025 9:00 AM EDT): Hypertension is stable and controlled Continue current treatment regimen. Blood pressure will be reassessed in 6 months. Assessment & Plan (07/22/2024 8:55 AM EDT): Hypertension is stable and controlled Continue current treatment regimen. Blood pressure will be reassessed in 6 months. Assessment & Plan (01/01/2024 11:31 AM EDT): Hypertension is stable and controlled Continue current treatment regimen. Blood pressure will be reassessed in 6 months. Assessment & Plan (10/18/2022 8:57 AM EST): Hypertension is improving with treatment. Continue current treatment regimen. Dietary sodium restriction. Blood pressure will be reassessed at the next regular appointment. Assessment & Plan (02/14/2022 11:06 AM EDT): Hypertension is unchanged. Dietary sodium restriction. Regular aerobic exercise. Continue current medications. Blood pressure will be reassessed 6 months. Non-seasonal allergic rhinitis due to pollen Assessment & Plan (10/18/2022 8:58 AM EST): Allergies are flaring due to lack of medication. Cetirizine refilled Immunizations Immunization Administration Dates Next Due Arexvy (RSV, Adults 60+ yrs) 07/19/2023,06/27/20 COVID-19 (GIGI) 08/14/2021,12/26/2020 COVID-19 (MODERNA) Monovalen t Original Booster 03/04/2022 FLUAD TRI 65YR+ 07/17/2020 Flu Vaccine Quad PF >36MO 07/18/2016 Fluad Quad 65+ 06/27/2022,06/16/2021 Fluzone (or Fluarix & Flulav al for VFC) >6mos 07/18/2016 Fluzone High-Dose 65+YRS 06/28/2024 Fluzone High-Dose 65+yrs 06/27/2023 Hepatitis B Adult/Adolescent IM 03/07/2011,09/03,08/06/2010 Pneumococcal Conjugate 13-Valent (PCV13) 021 Pneumococcal Polysaccharide (PPSV23) 06/07/2022, 07/18/2016 Shingrix 04/15/2023,12/24/2022 Tdap 05/08/2019 Family History Medical History Relation Name Comments Heart attack Father Heart attack Mother Cancer Sister Meryl Heart attack Sister Meryl Relation Name Status Comments Father Mother Sister Meryl Social History Tobacco Use Types Packs/Day Years Used Date Smoking Tobacco: Never Smokeless Tobacco: Never Tobacco Cessation:Counseling Given: Not Answered Alcohol Use Standard Drinks/Week Comments Never 0 (1 standard drink = 0.6 oz pur e alcohol) PHQ-2 Answer Date Recorded Retired PHQ-9: Brief Depression Severity Measure Score 0 06/27/2023 PHQ-2 Answer Date Recorded Patient Health Questionnaire-2 Score 0 01/20/2025 Comments Unknown Sex and Gender Information Value Date Recorded Sex Assigned at Female 01/13/2025 8:35 AM EDT Legal Sex Female 12:11 PM EDT Gender Identity Not on file Sexual Orientation Straight 01/13/2025 8: 35 AM EDT Last Filed Vital Signs Vital Sign Reading Time Taken Comments Blood Pressure 140/70 01/20/2025 9:04 AM EDT Pulse 73 01/20/2025 9:04 AM EDT Temperature 36.3 C (97.3 F) 01/20/2025 9:04 AM EDT Respiratory Rate 20 01/20/2025 9:04 AM EDT Oxygen Saturation 98% 01/20/2025 9:04 AM EDT Inhaled Oxygen Concentration - - Weight 85.4 kg (188 lb 3.2 oz) 01/20/2025 9:04 A M EDT Height 165.1 cm (5' 5 ) 01/20/2025 9:04 AM EDT Body Mass Index 31.32 01/20/2025 9:04 AM EDT Plan of Treatment Upcoming Encounters Date Type Department Care Team (Late st Contact Info) Description 07/28/2025 9:15 AM EST Office Visit [facility] [address], [place] [phone] Femi Medeiros MD [address], [place] [address] Health Maintenance Due Date Last Done Comments DXA SCAN 1955 COLOGUARD 1998 COLON CANCER SCREENING 5 YEA R SIGMOIDOSCOPY 1998 CT COLONOGRAPHY 1998 FECAL OCCULT BLOOD TEST 1998 FIT Testing (1 year) 1998 COVID-19 Vaccine (2024-10 6 season) 2025 03/04/2022, 08/14/2021, 12/26/2020 INFLUENZA VACCINE 06/25/2025 06/28/2024, , 06/28/2024, Additional history exists ANNUAL WELLNESS VISIT 07/22/2025 07/22/2024 , 07/22/2024, 06/27/2023 LIPID PANEL 11/27/2025 11/27/2024, 06/26, 08/21/2023, Additional history exists MAMMOGRAM 02/15/2026 02/16/2024, 01/24, 02/16/2024, Additional history exists TDAP/TD VACCINES (2 - Td or Tdap) 05/08/2029 019 COLONOSCOPY 01/05/2032 01/04/2022 COLORECTAL CANCER SCREENING 01/05/2032 HEPATITIS C SCREENING Completed 04/30/2021 Pneumococcal Vaccine 50+ Completed 022, 05/05/2021, 07/18/2016 ZOSTER VACCINE Completed 04/15/2023, 12/24/2022 Procedures Procedure Name Priority Date/Time Associated Diagnosis Comments LIPID PANEL Routine 07/22/2024 9:13 AM EDT Essential hypertension Hypercholesterolemi a SCANNED - INFLUENZA 06/28/2024 SCANNED - MAMMO 02/16/2024 from Last 3 Months or Most Recently Relevant to Health Maintenance Results * (ABNORMAL) Lipid Panel (07/22/2024 9:13 AM EDT) [facility] Total Cholesterol 143 0 - 200 mg/dL [facility] Comment: Cholesterol Reference Ranges (U.S. Department of Health and Human Services ATP III Classifications) Desirable <200 mg/dL Borderline High 200-239 mg/dL High Risk >240 mg/dL Triglyceride Reference Ranges (U.S. Department of Health and Human Services ATP III Classifications) Normal <150 mg/dL Borderline High 150-199 mg/dL High 200-499 mg/dL Very High >500 mg/dL HDL Reference Ranges (U.S. Department of Health and Human Services ATP III Classifications) Low <40 mg/dl (major risk factor for CHD) High >60 mg/dl ('negative' risk factor for CHD) LDL Reference Ranges (U.S. Department of Health and Human Services ATP III Classifications) Optimal <100 mg/dL Near Optimal 100-129 mg/dL Borderline High 130-159 mg/dL High 160-189 mg/dL Very High >189 mg/dL Triglycerides 96 0 - 150 mg/dL [facility] HDL Cholesterol 67(H) 40 - 60 mg/dL [facility] VLDL Cholesterol Cash 18 5 - 40 mg/dL [facility] LDL Chol Calc (NIH) 58 0 - 100 mg/dL [facility] Blood 07/22/2024 9:13 AM EDT 07/22/2024 Narrative [facility] (AMBULATORY) - 07/23/2024 3:08 AM EDT Performed at: [address] [place] [id number] Sales Teacher: Gunnar Adhikari MD, Phone: [phone] Patient Fasting: Y us Femi Medeiros MD LAB BLOOD ORDERABLES Fin al Result [facility] (AMBULATORY) [address] [place] [address], [place] [phone] [facility] [address] [place] [address], [place] [phone] * IMAGING SCANNED (06/28/2024) [facility] Onbase CHART REVIEW TABS Final Re sult * MAMMO Scan (02/16/2024) Anatomical Region Laterality Modality Other Femi Medeiros MD CHART REVIEW TABS Fin al Result from Last 3 Months or Most Recently Relevant to Health Maintenance Insurance [address] [address] MEDICARE A & B Member Subscriber Plan / Payer ( fective 2018-Present) Name:Neva Lynch Member ID:[id number] Relation to Subscriber:Self Name:Neva Lynch Subscriber ID:[id number] Payer ID:[id number] Group ID:Not on file Type:Not on file Address: [address] [place] [id number] [facility] Care Teams Cable Armorer Operator Relationship Specialty Start Date End Date Femi Medeiros MD [address] [place] [address] [place] [id number] PCP - General Family Medicine 02/14/22
--- OUTSIDE RECORDS SUMMARY | 2025-06-08 11:59 | XMS_ITS | Encounter Summary ---
Author Organization [employer] ([place], [place], [place], [place]) Address [address] [place] [address] Care Team Providers Care Motor Man Name Role Phone Unavailable Primary Care Provider Unavailabl e Encounter Details Date Type Department Care Team (Late st Contact Info) Description 07/10/2020 Transcribed Document [facility] [place] [facility] [place] [address] ProviderChelsea MD [address] [place], [place] [id number] Social History Tobacco Use Types Packs/Day Years Used Date Smoking Tobacco: Never Assessed Comments Unknown Sex and Gender Information Value Date Recorded Sex Assigned at Not on file Legal Sex Female 7:10 PM CDT Gender Identity Not on file Sexual Orientation Not on file documented as of this encounter Miscellaneous Notes * Cerner Conversion Note - Chelsea ProviderMD - 07/10/2020 1:32 PM CDT DATE OF SERVICE: DIAGNOSIS: Chest pain. INTERPRETATION: 1. The patient underwent stress perfusion imaging using Lexiscan. 2. No chest pain was elicited by the test. 3. There were no ischemic EKG changes seen. 4. A gated wall motion study shows normal regional wall motion with a calculated ejection fraction of 79%. 5. SPECT perfusion imaging is normal, with no evidence of ischemia or infarction. SUMMARY: Normal study. /[id number] MD TOMI Saucedo/AQ / TOMI / MODL /[id number] CC: MD Dr. Femi Saucedo Electronically signed by [facility], [facility] Conversion Milking Machine Technician Cerner at 01/12/2023 6:05 PM CDT documented in this encounter Plan of Treatment Not on file documented as of this encounter Visit Diagnoses Not on filedocumented in this encounter
--- OUTSIDE RECORDS SUMMARY | 2025-06-08 11:59 | XMS_ITS | Clinical Summary ---
Author Organization [facility] Address [address] [place] [address] Care Team Providers Care Baby Stroller Rental Clerk Name Role Phone Unavailable Primary Care Provider Unavailabl e Social History Tobacco Use Types Packs/Day Years Used Date Smoking Tobacco: Never Assessed Comments Unknown Sex and Gender Information Value Date Recorded Sex Assigned at Not on file Legal Sex Female 7:35 PM EDT Gender Identity Not on file Sexual Orientation Not on file Last Filed Vital Signs Vital Sign Reading Time Taken Comments Blood Pressure - - Pulse - - Temperature - - Respiratory Rate - - Oxygen Saturation - - Inhaled Oxygen Concentration - - Weight 79.4 kg (175 lb) 11/25/2013 2:32 PM EST Height 165.1 cm (5' 5 ) 01/07/2013 2:01 PM EDT Body Mass Index 29.12 01/07/2013 2:01 PM EDT Plan of Treatment Not on file
--- OUTSIDE RECORDS SUMMARY | 2025-06-08 11:59 | XMS_ITS | Clinical Summary ---
Author Organization [employer] ([place], [place], [place], [place]) Address [address] [place] [address] Care Team Providers Care Ballistics Expert Forensic Name Role Phone Unavailable Primary Care Provider Unavailabl e Social History Tobacco Use Types Packs/Day Years Used Date Smoking Tobacco: Never Assessed Food Insecurity Answer Date Recorded Food run out past 12 months Not on file 09/25 Food did not last past 12 months Not on file 10/13/2023 Employment Answer Date Recorded Help finding and keeping a job Not on file 0 10/13/2023 Family and Community Support Answer Zeke e Recorded Help with Day to Day Activities Not on file 10/13/2023 Feeling Lonely or Isolated Not on file 10/13 Educational Attainment Answer Date Castillo rded Speak language other than Yakut at home Not on file 10/13/2023 Want help with school or training Not on file 10/13/2023 Substance Use Answer Date Recorded Used prescription meds for non-medical reasons N ot on file 10/13/2023 Used illegal drugs past 12 months Not on file 10/13/2023 Comments Unknown Sex and Gender Information Value Date Recorded Sex Assigned at Not on file Legal Sex Female 7:10 PM CDT Gender Identity Not on file Sexual Orientation Not on file Plan of Treatment Health Maintenance Due Date Last Done Comments Medicare Initial AWV G0438 CT Colonography 1953 Colonoscopy 1953 Colorectal Cancer Screening 1953 DXA SCAN 1955 FOBT/FIT 1953 Fit-DNA (Cologuard) 1953 Sigmoidoscopy 1953 Depression Screening (12+) 1965 Tobacco Cessation Counseling and Screening (12+) 1965 Hepatitis C Screening 1971 Breast Cancer Screening 1993 Shingles Vaccine (Zoster) (1 of 2) 2003 Falls Risk Screening 09/25/2024 COVID-19 VACCINE ( season) 2025 03/04/2022, 08/14/2021, 12/26/2020 Influenza Vaccine (#1) 2025 2, 06/16/2021, 07/17/2020 Respiratory Syncytial Virus (RSV) Adult or (1 - 1-dose 75+ series) 2028 DTAP/TDAP/TD VACCINES (2 - T d or Tdap) 05/08/2029 05/08/2019 Pneumococcal 50+ years Completed 2, 05/05/2021, 07/18/2016 Insurance MEDICARE PART A B
--- OUTSIDE RECORDS SUMMARY | 2025-06-08 11:59 | XMS_ITS | Referral Summary ---
Author Organization [employer] ([place], [place], [place], [place]) Address [address] [place] [address] Care Team Providers Care Customer Success Manager Name Role Phone Unavailable Primary Care Provider [...] Date Castillo rded Speak language other than Faroese at home Not on file 10/13/2023 Want [...] Orientation Not on file Plan of Treatment Not on file Insurance [place] [id number] MEDICARE PART A B
== END 2025-06-08 23:59 | disposition home or self-care (01) ==
LOC: RAD 11:57
PROVIDERS: PCP Family Medicine; Visit Provider Nurse Practitioner
DX: S92.512A Displaced fracture of proximal phalanx of left lesser toe(s), initial encounter for closed fracture (principal); M19.072 Primary osteoarthritis, left ankle and foot
CPT/HCPCS: 73630

== ENCOUNTER 2025-06-16 09:06 | Outpatient (CLI) | payer MEDICARE, BC, SELFPAY ==
--- NOTE | 2025-06-16 09:13 | XR_ITS ---
FINAL REPORT CLINICAL HISTORY: left foot fx COMPARISON: 06/08/2025 FINDINGS: AP, oblique and lateral views of the left foot were obtained. Since the prior exam there has been interval healing of the fracture of the fourth proximal phalanx. No new fractures are identified. Mild degenerative joint disease is noted. Mild soft tissue swelling of the fourth digit remains present. IMPRESSION: Interval healing of the fourth proximal phalanx fracture since the prior exam of 06/08/2025. Reviewed, Interpreted and Dictated by Mary Bustamante MD Transcribed by Inocencia Katz Authenticated and [facility]
--- OUTSIDE RECORDS SUMMARY | 2025-06-16 09:35 | XMS_ITS | Encounter Summary ---
Author Organization [employer] ([place], [place], [place], [place]) Address [address] [place] [address] Care Team Providers Care Perforating Machine Operator Name Role Phone Unavailable Primary Care Provider Unavailabl e Encounter Details Date Type Department Care Team (Late st Contact Info) Description 07/10/2020 Transcribed Document [facility] Family Medicine [facility] [place] [address] ProviderChelsea MD [address] [place], [place] [id number] Social History Tobacco Use Types Packs/Day Years [...] of ischemia or infarction. SUMMARY: Normal study. /[id number] MD TOMI Saucedo/AQ / TOMI / MODL /[id number] CC: MD Dr. Femi Saucedo Electronically signed by [facility], [facility] Conversion Dial Mounter Cerner at 01/12/2023 6:05 PM CDT documented in this encounter Plan of Treatment Not on file documented as of this encounter Visit Diagnoses Not on filedocumented in this encounter
--- OUTSIDE RECORDS SUMMARY | 2025-06-16 09:35 | XMS_ITS | Clinical Summary ---
Author Organization [facility] Address [address] [place] [address] Care Team Providers Care Residential Sales Associate Name Role Phone Femi Medeiros MD Primary [...] Description 07/28/2025 9:15 AM EST Office Visit [facility] FAMILY MEDICINE [address] [place], [place] [address] Femi Medeiros MD [address] [place], [place] [address] Health Maintenance Due Date Last Done Comments DXA SCAN 1953 COLOGUARD 1998 COLON CANCER SCREENING 5 YEA R SIGMOIDOSCOPY 1998 CT COLONOGRAPHY 1998 FECAL OCCULT BLOOD TEST 1998 FIT Testing (1 year) 1998 INFLUENZA VACCINE 04/25/2025 06/28/2024, , 06/28/2024, Additional history exists COVID-19 Vaccine (2024- 6 season) 2025 03/04/2022, 08/14/2021, 12/26/2020 ANNUAL WELLNESS VISIT 07/22/2025 07/22/2024 , 07/22/2024, [...] Procedure Name Priority Date/Time Associated Diagnosis Comments SCANNED - IMAGING 06/08/2025 LIPID PANEL Routine 07/22/2024 9:13 AM EDT Essential hypertension Hypercholesterolemi a SCANNED - INFLUENZA 06/28/2024 SCANNED - MAMMO 02/16/2024 from Last 3 Months or Most Recently Relevant to Health Maintenance Results * IMAGING SCANNED (06/08/2025) Anatomical Region Laterality Modality Radiographic Vilma ging Femi Medeiros MD IMG DIAGNOSTIC IMAGING O RDERABLES Final Result * (ABNORMAL) Lipid Panel (07/22/2024 9:13 AM EDT) Total Cholesterol 143 0 - 200 mg/dL [...] 07/22/2024 9:13 AM EDT 07/22/2024 Narrative [facility] (AMBULATORY) - 07/23/2024 3:08 AM EDT Performed at: [address] [id number] Medical Record Retrieval Specialist: Gunnar Adhikari MD, Phone: [phone] Patient Fasting: Y Femi Medeiros MD LAB BLOOD ORDERABLES Fin al Result [facility] (AM[facility]ULATORY) [address] [place] [address], [place] [phone] [facility] [address] [place] [address], [place] [phone] * IMAGING SCANNED (06/28/2024) [facility] CHART REVIEW TABS Final Re sult * MAMMO Scan (02/16/2024) Anatomical Region Laterality Modality Other Femi Medeiros MD CHART REVIEW TABS Fin al Result from Last 3 Months or Most Recently Relevant to Health Maintenance Insurance [address], [place] [address] MEDICARE A & B [facility] Care Teams Residential Sales Associate Relationship Specialty Start Date End Date Femi Medeiros MD [address] [place] [address] [place] [address] PCP - General Family Medicine 02/14/22
--- OUTSIDE RECORDS SUMMARY | 2025-06-16 09:35 | XMS_ITS | Referral Summary ---
Author Organization [employer] ([place], [place], [place], [place]) Address [address] [place] [address] Care Team Providers Care Plant And Equipment Worker Name Role Phone Unavailable Primary Care Provider [...] Date Castillo rded Speak language other than Ukrainian at home Not on file 10/13/2023 Want [...] Treatment Not on file Insurance [place] [id number] MEDICARE PART A B
--- OUTSIDE RECORDS SUMMARY | 2025-06-16 09:35 | XMS_ITS | Clinical Summary ---
Author Organization [facility] Address [address] [place] [address] Care Team Providers Care Cancer Registry Manager Name Role Phone Unavailable Primary Care [...]
--- OUTSIDE RECORDS SUMMARY | 2025-06-16 09:35 | XMS_ITS | Clinical Summary ---
Author Organization [employer] ([place], [place], [place], [place]) Address [address] [place] [address] Care Team Providers Care Director Of Physician Practices Name Role Phone Unavailable Primary Care Provider [...] Date Castillo rded Speak language other than Irish at home Not on file 10/13/2023 Want [...]
== END 2025-06-16 23:59 | disposition home or self-care (01) ==
LOC: RAD 09:08
PROVIDERS: PCP Family Medicine; Visit Provider Physician Assistant
DX: S92.512D Displaced fracture of proximal phalanx of left lesser toe(s), subsequent encounter for fracture with routine healing (principal); X58.XXXD Exposure to other specified factors, subsequent encounter
CPT/HCPCS: 73630

== ENCOUNTER 2025-09-09 18:34 | Outpatient (CLI) | payer MEDICARE, BC, SELFPAY ==
--- OUTSIDE RECORDS SUMMARY | 2025-07-28 09:15 | XMS_ITS | Encounter Summary ---
Author Organization [facility] Address [address] [place] [id number] Care Team Providers Care Household Refrigeration Mechanic Name Role Phone Femi Medeiros MD Primary Care Provider + Reason for Visit * Reason Comments Medicare Wellness-subsequent Encounter Details Date Type Department Care Team (Late st Contact Info) Description 07/28/2025 9:15 AM EST Office Visit [facility] FAMILY MEDICINE [address] [place] [address] Femi Medeiros MD [address] [place] [address] Medicare annual wellness visit, subsequent (Primary Dx); Need for immunization against influenza; Hypercholesterolemia; Essential hypertension; Non-seasonal allergic rhinitis due to pollen Social History Tobacco Use Types Packs/Day Years Used Date Smoking Tobacco: Never Smokeless Tobacco: Never Alcohol Use Standard Drinks/Week Comments Never 0 (1 standard drink = 0.6 oz pur e alcohol) PHQ-2 Answer Date Recorded Retired PHQ-9: Brief Depression Severity Measure Score 0 06/27/2023 PHQ-2 Answer Date Recorded Patient Health Questionnaire-2 Score 0 07/28/2025 Comments Unknown Sex and Gender Information Value Date Recorded Sex Assigned at Female 01/13/2025 8:35 AM EDT Legal Sex Female 12:11 PM EDT Gender Identity Not on file Sexual Orientation Straight 01/13/2025 8: 35 AM EDT documented as of this encounter Last Filed Vital Signs Vital Sign Reading Time Taken Comments Blood Pressure 130/70 07/28/2025 9:13 AM EST Pulse 79 07/28/2025 9:13 AM EST Temperature 36.6 C (97.8 F) 07/28/2025 9:13 AM EST Respiratory Rate 20 07/28/2025 9:13 AM EST Oxygen Saturation 98% 07/28/2025 9:13 AM EST Inhaled Oxygen Concentration - - Weight 84.6 kg (186 lb 6.4 oz) 07/28/2025 9:13 A M EST Height 165.1 cm (5' 5 ) 07/28/2025 9:13 AM EST Body Mass Index 31.02 07/28/2025 9:13 AM EST documented in this encounter Functional Status documented as of this encounter Patient Instructions * Attachments The following attachments cannot be sent through Care Everywhere. * Health Maintenance After Age 65 (Martiniquais) documented in this encounter Progress Notes * Femi Medeiros MD - 07/28/2025 9:15 AM ESTAssociated Problem(s): Hypercholesterolemia Orders: Lipid Panel rosuvastatin (CRESTOR) 5 MG tablet; Take 1 tablet by mouth Daily. * Femi Medeiros MD - 07/28/2025 9:15 AM ESTAssociated Problem(s): Essential hypertension Hypertension is stable and controlled Continue current treatment regimen. Blood pressure will be reassessed in 6 months. Orders: Basic Metabolic Panel amLODIPine (NORVASC) 2.5 MG tablet; Take 1 tablet by mouth Daily. * Femi Medeiros MD - 07/28/2025 9:15 AM ESTAssociated Problem(s): Non- seasonal allergic rhinitis due to pollen Orders: cetirizine (zyrTEC) 10 MG tablet; Take 1 tablet by mouth Daily. * Femi Medeiros MD - 07/28/2025 9:15 AM EST Subjective The ABCs of the Annual Wellness Visit Medicare Wellness Visit Neva Lynch is a 69 y.o. patient who presents for a Medicare Wellness Visit. The following portions of the patient's history were reviewed and updated as appropriate: allergies, current medications, past family history, past medical history, past social history, past surgical history, and problem list. Compared to one year ago, the patient's physical health is the same. Compared to one year ago, the patient's mental health is the same. Recent Hospitalizations: She was not admitted to the hospital during the last year. Current Medical Providers: Patient Care Team: Femi Medeiros MD as PCP - General (Family Medicine) Valentin Ledesma DO (Dermatology) Outpatient Medications Prior to Visit Medication Sig Dispense Refill Upadacitinib ER (Rinvoq) 15 MG tablet sustained-release 24 hour Rinvoq 15 mg tablet,extended release Take 1 tablet every day by oral route. amLODIPine (NORVASC) 2.5 MG tablet Take 1 tablet by mouth Daily. 90 tablet 3 cetirizine (zyrTEC) 10 MG tablet Take 1 tablet by mouth Daily. 90 tablet 3 rosuvastatin (CRESTOR) 5 MG tablet Take 1 tablet by mouth Daily. 90 tablet 3 No facility-administered medications prior to visit. No opioid medication identified on active medication list. I have reviewed chart for other potential high risk medication/s and harmful drug interactions in the elderly. Aspirin is not on active medication list. Aspirin use is not indicated based on review of current medical condition/s. Risk of harm outweighs potential benefits. . Patient Active Problem List Diagnosis Essential hypertension Non-seasonal allergic rhinitis due to pollen Multiple thyroid nodules Hypercholesterolemia Advance Care Planning Advance Directive is not on file. ACP discussion was held with the patient during this visit. Patient has an advance directive (not in EMR), copy requested. Objective Vitals: 07/28/25 0913 BP: 130/70 Pulse: 79 Resp: 20 Temp: 97.8 ??F (36.6 ??C) SpO2: 98% Weight: 84.6 kg (186 lb 6.4 oz) Height: 165.1 cm (65 ) PainSc: 0-No pain Estimated body mass index is 31.02 kg/m?? as calculated from the following: Height as of this encounter: 165.1 cm (65 ). Weight as of this encounter: 84.6 kg (186 lb 6.4 oz). Does the patient have evidence of cognitive impairment? No Health Risk Assessment Smoking Status: Social History Tobacco Use Smoking Status Never Smokeless Tobacco Never Alcohol Consumption: Social History Substance and Sexual Activity Alcohol Use Never Fall Risk Screen STEADI Fall Risk Assessment was completed, and patient is at LOW risk for falls.Assessment completed on:07/28/2025 Depression Screening Little interest or pleasure in doing things? Not at all Feeling down, depressed, or hopeless? Not at all PHQ-2 Total Score 0 Health Habits and Functional and Cognitive Screenin07/28/2025 9:12 AM Functional & Cognitive Status Do you have difficulty preparing food and eating? No Do you have difficulty bathing yourself, getting dressed or grooming yourself? No Do you have difficulty using the toilet? No Do you have difficulty moving around from place to place? No Do you have trouble with steps or getting out of a bed or a chair? No Current Diet Limited Junk Food Dental Exam Up to date Eye Exam Not up to date Exercise (times per week) 0 times per week Current Exercises Include No Regular Exercise Do you need help using the phone? No Are you deaf or do you have serious difficulty hearing? No Do you need help to go to places out of walking distance? No Do you need help shopping? No Do you need help preparing meals? No Do you need help with housework? No Do you need help with laundry? No Do you need help taking your medications? No Do you need help managing money? No Do you ever drive or ride in a car without wearing a seat belt? No Have you felt unusual fatigue (could be tiredness), stress, anger or loneliness in the last month? No Who do you live with? Spouse If you need help, do you have trouble finding someone available to you? No Have you been bothered in the last four weeks by sexual problems? No Do you have difficulty concentrating, remembering or making decisions? No Age-appropriate Screening Schedule: Refer to the list below for future screening recommendations based on patient's age, sex and/or medical conditions. Orders for these recommended tests are listed in the plan section. The patient has been provided with a written plan. Health Maintenance List Health Maintenance Topic Date Due DXA SCAN Never done COVID-19 Vaccine ( season) 2025 (Originally 05/26/2025) LIPID PANEL 11/27/2025 MAMMOGRAM 02/15/2026 ANNUAL WELLNESS VISIT 07/28/2026 TDAP/TD VACCINES (2 - Td or Tdap) 05/08/2029 COLORECTAL CANCER SCREENING 01/05/2032 HEPATITIS C SCREENING Completed INFLUENZA VACCINE Completed Pneumococcal Vaccine 50+ Completed ZOSTER VACCINE Completed [facility] Preventative Services Quick Reference Risk Factors Identified During Encounter Immunizations Discussed/Encouraged: Influenza Chronic Care every 6 months The above risks/problems have been discussed with the patient. Pertinent information has been shared with the patient in the After Visit Summary. An After Visit Summary and PPPS were made available to the patient. Follow Up: Next Medicare Wellness visit to be scheduled in 1 year. Assessment & Plan Medicare annual wellness visit, subsequent Need for immunization against influenza Orders: Fluzone High-Dose 65+yrs (0713-0901) Hypercholesterolemia Orders: Lipid Panel rosuvastatin (CRESTOR) 5 MG tablet; Take 1 tablet by mouth Daily. Essential hypertension Hypertension is stable and controlled Continue current treatment regimen. Blood pressure will be reassessed in 6 months. Orders: Basic Metabolic Panel amLODIPine (NORVASC) 2.5 MG tablet; Take 1 tablet by mouth Daily. Non-seasonal allergic rhinitis due to pollen Orders: cetirizine (zyrTEC) 10 MG tablet; Take 1 tablet by mouth Daily. Follow Up: Return in about 6 months (around 01/25/2026) for Next scheduled follow up. documented in this encounter Plan of Treatment Upcoming Encounters Date Type Department Care Team (Late st Contact Info) Description 01/26/2026 8:45 AM EDT Office Visit [facility] FAMILY MEDICINE [address] [facility] [place] [address] Femi Medeiros [place] [address] documented as of this encounter Procedures Procedure Name Priority Date/Time Associated Diagnosis Comments LIPID PANEL Routine 07/28/2025 10:12 AM EST Hypercholesterolemia BASIC METABOLIC PANEL Routine 07/28/2025 10:12 AM EST Essential hypertension documented in this encounter Results * (ABNORMAL) Lipid Panel (07/28/2025 10:12 AM EST) Pathologist [facility] Total Cholesterol 138 0 - 200 mg/dL [facility] Comment: [...] High 160-189 mg/dL Very High >189 mg/dL LDL is calculated using the NIH LDL-C calculation. Triglycerides 96 0 - 150 mg/dL [facility] HDL Cholesterol 66(H) 40 - 60 mg/dL [facility] VLDL Cholesterol Cash 18 5 - 40 mg/dL [facility] LDL Chol Calc (NIH) 54 0 - 100 mg/dL [facility] Blood 07/28/2025 10:1 2 AM EST 07/28/2025 Narrative [facility] ([facility]) - 07/29/2025 3:07 AM EST Performed at: [address] [id number] Dialysis Clinical Manager: Gunnar Adhikari MD, Phone: [phone] Patient Fasting: Y us Femi Medeiros MD LAB BLOOD ORDERABLES Fin al Result [facility] ([facility]UL[facility]) [address] [place] [address], [place] [phone] [facility] [address] [place] [address], * Basic Metabolic Panel (07/28/2025 10:12 AM EST) [facility] Glucose 91 65 - 99 mg/dL [facility] BUN 14.0 8.0 - 23.0 mg/dL [facility] Creatinine 0.78 0.57 - 1.00 mg/dL [facility] EGFR Result 81.3 >60.0 mL/min/1.7 3 [facility] Comment: GFR Categories in Chronic Kidney Disease (CKD) GFR Category GFR (mL/min/1.73) Interpretation G1 90 or greater Normal or high (1) G2 60-89 Mild decrease (1) G3a 45-59 Mild to moderate decrease G3b 30-44 Moderate to severe decrease G4 15-29 Severe decrease G5 14 or less Kidney failure (1)In the absence of evidence of kidney disease, neither GFR category G1 or G2 fulfill the criteria for CKD. eGFR calculation 2020 CKD-EPI creatinine equation, which does not include race as a factor BUN/Creatinine Ratio 17.9 7.0 - 25.0 [facility] Sodium 144 136 - 145 mmol/L [facility] Potassium 4.5 3.5 - 5.2 mmol/L [facility] Chloride 106 98 - 107 mmol/L [facility] Total CO2 27.4 22.0 - 29.0 mmol/L [facility] Calcium 9.7 8.6 - 10.5 mg/dL [facility] Blood 07/28/2025 10:1 2 AM EST 07/28/2025 Narrative [facility] ([facility]) - 07/29/2025 3:07 AM EST Performed at: [address] [place] [address] [address] [place], [place] [id number] Dialysis Clinical Manager: Gunnar Adhikari MD, Phone: [phone] Patient Fasting: Y us Femi Medeiros MD LAB BLOOD ORDERABLES Fin al Result [facility] ([facility]) [address] [place] [address], [place] [phone] [facility] [address] [place] [address], [place] [phone] documented in this encounter Visit Diagnoses Diagnosis Medicare annual wellness visit, subsequent- Primary Need for immunization against influenza Need for prophylactic vaccination and inoculation against influenza Hypercholesterolemia Pure hypercholesterolemia Essential hypertension Unspecified essential hypertension Non-seasonal allergic rhinitis due to pollen documented in this encounter Care Teams Household Refrigeration Mechanic Relationship Specialty Start Date End Date Femi Medeiros MD [address] [place] [address] PCP - General Family Medicine 02/14/22 documented as of this encounter
[2025-09-09 20:53] LABS: Coronavirus 19, PCR Not Detected (NotDetected); Influenza A, PCR Not Detected (NotDetected); Influenza B, PCR Not Detected (NotDetected)
--- OUTSIDE RECORDS SUMMARY | 2025-09-10 18:45 | XMS_ITS | Clinical Summary ---
Author Organization [facility] Address [address] [place] [address] Care Team Providers Care Lehr Tender Name Role Phone Unavailable Primary Care Provider [...]
--- OUTSIDE RECORDS SUMMARY | 2025-09-10 18:45 | XMS_ITS | Encounter Summary ---
Author Organization [employer] ([place], [place], [place], [place], [place]) Address [address] [place] [address] Care Team Providers Care Credit Collector Name Role Phone Unavailable Primary Care Provider Unavailabl e Encounter Details Date Type Department Care Team (Late st Contact Info) Description 07/10/2020 Transcribed Document [facility] Family Medicine [place] [address] ProviderChelsea MD [address] [place], [place] [address] Social History Tobacco Use Types Packs/Day Years [...] of ischemia or infarction. SUMMARY: Normal study. /[id number] MD TOMI Saucedo/AQ / TOMI / MODL /[id number] CC: MD Dr. Femi Saucedo Electronically signed by [facility], [facility] Conversion Semiconductor Engineer Cerner at 01/12/2023 6:05 PM CDT documented in this encounter Plan of Treatment Not on file documented as of this encounter Visit Diagnoses Not on filedocumented in this encounter
--- OUTSIDE RECORDS SUMMARY | 2025-09-10 18:45 | XMS_ITS | Encounter Summary ---
Author Organization [facility] Address [address] [place] [address] Care Team Providers Care Rod Welder Name Role Phone Femi Medeiros MD Primary Care Provider + Encounter Details Date Type Department Care Team (Latest Contact Info) Description 07/28/2025 Travel Social History Tobacco Use Types Packs/Day Years [...] AM EDT documented as of this encounter Functional Status documented as of this encounter Plan of Treatment Upcoming Encounters Date Type Department Care Team (Late st Contact Info) Description 01/26/2026 8:45 AM EDT Office Visit [facility] FAMILY MEDICINE [address] [facility] [place] [address] Femi Medeiros MD [address] [address] documented as of this encounter Visit Diagnoses Not on filedocumented in this encounter Care Teams Rod Welder Relationship Specialty Start Date End Date Femi Medeiros MD [address] [place] [address] PCP - General Family Medicine 02/14/22 documented as of this encounter
--- OUTSIDE RECORDS SUMMARY | 2025-09-10 18:45 | XMS_ITS | Clinical Summary ---
Author Organization [employer] ([place], [place], [place], [place], [place]) Address [address] [place] [address] Care Team Providers Care Sewage Disposal Worker Name Role Phone Unavailable Primary Care [...] Date Castillo rded Speak language other than Scottish at home Not on file 10/13/2023 Want [...] Health Maintenance Due Date Last Done Comments CT Colonography 1953 Colonoscopy 1953 Colorectal Cancer Screening 1953 DXA SCAN 1955 FOBT/FIT 1953 Fit-DNA (Cologuard) 1953 Sigmoidoscopy 1953 Depression Screening (12+) 1965 Tobacco Cessation Counseling and Screening (12+) 1965 Breast Cancer Screening 1993 Shingles Vaccine (Zoster) [...]
--- OUTSIDE RECORDS SUMMARY | 2025-09-10 18:45 | XMS_ITS | Encounter Summary ---
Author Organization [facility] Address [address] [place] [address] Care Team Providers Care Director Global Medical Affairs Name Role Phone Femi Medeiros MD Primary Care Provider + Encounter Details Date Type Department Care Team (Late Contact Info) Description 08/07/2025 Results Follow-Up [facility] MEDICINE [address] [facility] [place] [address] Femi Medeiros MD [address] [facility] [place] [address] Social History Tobacco Use Types Packs/Day Years [...] AM EDT documented as of this encounter Plan of Treatment Upcoming Encounters Date Type Department Care Team (Late st Contact Info) Description 01/26/2026 8:45 AM EDT Office Visit [facility] MEDICINE [address] [facility] [place] [address] Femi Medeiros MD [address] [place] [address] documented as of this encounter Visit Diagnoses Not on filedocumented in this encounter Care Teams Director Global Medical Affairs Relationship Specialty Start Date End Date Femi Medeiros MD [address] [place] [address] PCP - General Family Medicine 02/14/22 documented as of this encounter
--- OUTSIDE RECORDS SUMMARY | 2025-09-10 18:45 | XMS_ITS | Clinical Summary ---
Author Organization [facility] Address [address] [place] [address] Care Team Providers Care Tank Truck Loader Name Role Phone Femi Medeiros MD Primary Care Provider + Allergies Active Allergy Reactions Criticality Noted Date Comments Penicillins Hives Low 02/04/2010 Medications Upadacitinib ER (Rinvoq) 15 MG tablet sustained-release 24 hour Rinvoq 15 mg tablet,exten ded release Take 1 tablet every day by oral route. 2 Active rosuvastatin (CRESTOR) 5 MG tabletIndications :Hypercholesterol emia Take 1 tablet by mouth Daily. 90 tablet 3 5 Active amLODIPine (NORVASC) 2.5 MG tabletIndications :Essential hypertension Take 1 tablet by mouth Daily. 90 tablet 3 5 Active cetirizine (zyrTEC) 10 MG tabletIndications :Non-seasonal allergic rhinitis due to pollen Take 1 tablet by mouth Daily. 90 tablet 3 5 Active Active Problems Problem Noted Date Diagnosed Date Hypercholesterolemia 01/01/2024 Assessment & Plan (07/28/2025 10:19 AM EST): Orders: Lipid Panel rosuvastatin (CRESTOR) 5 MG tablet; Take 1 tablet by mouth Daily. Assessment & Plan (07/22/2024 8:55 AM EDT): [...] needed. Essential hypertension 02/14/2022 Assessment & Plan (07/28/2025 10:19 AM EST): Hypertension is stable and controlled Continue current treatment regimen. Blood pressure will be reassessed in 6 months. Orders: Basic Metabolic Panel amLODIPine (NORVASC) 2.5 MG tablet; Take 1 tablet by mouth Daily. Assessment & Plan (01/20/2025 9:00 AM EDT): [...] rhinitis due to pollen Assessment & Plan (07/28/2025 10:19 AM EST): Orders: cetirizine (zyrTEC) 10 MG tablet; Take 1 tablet by mouth Daily. Assessment & Plan (10/18/2022 8:58 AM EST): Allergies are flaring due to lack of medication. Cetirizine refilled Encounters Date Type Department Care Team Description 08/07/2025 Results Follow-Up [facility] [address] [place] [phone] Femi Medeiros MD 07/29/2025 Results Follow-Up [facility] [address] [place] [phone] Femi Medeiros MD 07/28/2025 9:15 AM EST Office Visit [facility] [address] [place] [phone] Femi Medeiros MD Medicare annual wellness visit, subsequent (Primary Dx); Need for immunization against influenza; Hypercholesterolemia; Essential hypertension; Non-seasonal allergic rhinitis due to pollen 07/28/2025 Travel from Last 3 Months Immunizations Immunization Administration Dates Next Due Arexvy (RSV, Adults 60+ yrs) 07/19/2023,06/27/20 COVID-19 (GIGI) 08/14/2021,12/26/2020 COVID-19 (MODERNA) Monovalen t Original Booster 03/04/2022 FLUAD TRI 65YR+ 06/28/2024,07/17/2020 Flu Vaccine Quad PF >36MO 07/18/2016 Fluad Quad 65+ 06/27/2022,06/16/2021 Fluzone (or Fluarix & Flulav al for VFC) >6mos 07/18/2016 Fluzone High-Dose 65+YRS 07/28/2025,06/28/2024 Fluzone High-Dose 65+yrs 06/27/2023 Hepatitis B Adult/Adolescent [...] Mass Index 31.02 07/28/2025 9:13 AM EST Plan of Treatment Upcoming Encounters Date Type Department Care Team (Late st Contact Info) Description 01/26/2026 8:45 AM EDT Office Visit [facility] [address] [facility] [place] [phone] Femi Medeiros MD [address] [id number] Health Maintenance Due Date Last Done Comments DXA SCAN 1953 COLOGUARD 1998 COLON CANCER SCREENING 5 YEA R SIGMOIDOSCOPY 1998 CT COLONOGRAPHY 1998 FECAL OCCULT BLOOD TEST 1998 FIT Testing (1 year) 1998 COVID-19 Vaccine (4 - 2024-2 6 season) 2025 03/04/2022, 08/14/2021, 12/26/2020 ANNUAL WELLNESS VISIT 07/28/2026 07/28/2025 , 07/28/2025, 07/22/2024, Additional history exists LIPID PANEL 07/28/2026 07/28/2025, 030 01/2025, 07/22/2024, Additional history exists MAMMOGRAM 08/04/2027 08/04/2025, 01/24, 02/16/2024, Additional history exists TDAP/TD VACCINES (2 - Td or Tdap) 05/08/2029 019 COLONOSCOPY 01/05/2032 01/04/2022 COLORECTAL CANCER SCREENING 01/05/2032 HEPATITIS C SCREENING Completed 04/30/2021 Pneumococcal Vaccine 50+ Completed 022, 05/05/2021, 07/18/2016 ZOSTER VACCINE Completed 04/15/2023, 12/24/2022 INFLUENZA VACCINE Completed 07/28/2025, , 06/28/2024, Additional history exists Procedures Procedure Name Priority Date/Time Associated Diagnosis Comments SCANNED - MAMMO 08/04/2025 LIPID PANEL Routine 07/28/2025 10:12 AM EST Hypercholesterolemia BASIC METABOLIC PANEL Routine 07/28/2025 10:12 AM EST Essential hypertension SCANNED - IMAGING 06/16/2025 SCANNED - INFLUENZA 06/28/2024 from Last 3 Months or Most Recently Relevant to Health Maintenance Results * MAMMO Scan (08/04/2025) Anatomical Region Laterality Modality Other Femi Medeiros MD CHART REVIEW TABS Fin al Result * (ABNORMAL) Lipid Panel (07/28/2025 10:12 AM EST) Total Cholesterol 138 0 - 200 mg/dL [...] - 07/29/2025 3:07 AM EST Performed at: [address] [place] [address] [id number] Tool Polishing Machine Operator: Gunnar Adhikari MD, Phone: [phone] Patient Fasting: Y us Femi Medeiros MD LAB BLOOD ORDERABLES Fin al Result [facility] (AMBULATORY) [address] [place] [address], [facility] [address] [place] [address], [place] [phone] * Basic Metabolic Panel (07/28/2025 10:12 AM EST) [facility] Glucose 91 65 - 99 mg/dL [facility] [...] - 07/29/2025 3:07 AM EST Performed at: [address] [place] [address] [id number] Tool Polishing Machine Operator: Gunnar Adhikari MD, Phone: [phone] Patient Fasting: Y Femi Medeiros MD LAB BLOOD ORDERABLES Fin al Result [facility] (AMBULATORY) [address] [place] [address], [place] [phone] [facility] [address] [place] [address], [place] [phone] * IMAGING SCANNED (06/16/2025) Anatomical Region Laterality Modality Radiographic Vilma ging Femi Medeiros MD IMG DIAGNOSTIC IMAGING O RDERABLES Final Result * IMAGING SCANNED (06/28/2024) [facility] CHART REVIEW TABS Final Re sult from Last 3 Months or Most Recently Relevant to Health Maintenance Insurance [id number] [place] [address] MEDICARE A & B [facility] Care Teams Tank Truck Loader Relationship Specialty Start Date End Date Femi Medeiros MD [address] [place] [address] PCP - General Family Medicine 02/14/22
--- OUTSIDE RECORDS SUMMARY | 2025-09-10 18:45 | XMS_ITS | Encounter Summary ---
Author Organization [facility] yste Address [address] [place] [address] Care Team Providers Care Guest Relations Manager Name Role Phone Femi Medeiros MD Primary Care Provider + Encounter Details Date Type Department Care Team (Late Contact Info) Description 07/29/2025 Results Follow-Up [facility] [address] [facility] [address] Femi Medeiros MD [address] [facility] [address] Social History Tobacco Use Types [...] Description 01/26/2026 8:45 AM EDT Office Visit [facility] [address] [facility] [place] [address] Femi Medeiros MD [address] [place] [address] documented as of this encounter Visit Diagnoses Not on filedocumented in this encounter Care Teams Guest Relations Manager Relationship Specialty Start Date End Date Femi Medeiros MD [address] [place] [address] PCP - General Family Medicine 02/14/22 documented as of this encounter
--- OUTSIDE RECORDS SUMMARY | 2025-09-10 18:45 | XMS_ITS | Referral Summary ---
Author Organization [facility] ([place], [place], [place], [place], [place]) Address [address] [place] [address] Care Team Providers Care Lawn Care Worker Name Role Phone Unavailable Primary Care [...] Date Castillo rded Speak language other than Chadian at home Not on file 10/13/2023 Want [...] Treatment Not on file Insurance [place] [id number] MEDICARE PART A B
== END 2025-09-09 23:59 | disposition home or self-care (01) ==
LOC: LAB.DROPOF 09-10 18:44
PROVIDERS: PCP Family Medicine; Visit Provider Nurse Practitioner
DX: J06.9 Acute upper respiratory infection, unspecified (principal); J02.9 Acute pharyngitis, unspecified
CPT/HCPCS: 87631